=== PATIENT | male | born 1935 | race Caucasian/White ===

== ENCOUNTER 2018-06-01 10:00 | Inpatient (IN) | payer BC, OTHER ==
--- NOTE | 2018-06-01 10:19 | PDOC ---
Attending Attestation - Resident Resident Name: Bro Crane - HPI HPI: 06/01/18 12:31 Pt presents to the ED complaining of sudden onset of lightheadedness that occurred while sitting at a table. Symptoms improved spontaneously, but returned again when he tried to get up. Denies chest pain or shortness of breath. Now is symptom free. EMS reports HR of 200 that spontaneously resolved. 06/01/18 17:31 06/01/18 17:34 06/01/18 17:51 - Physicial Exam PE: 06/01/18 17:52 Agree with resident exam. PAtient is alert and oriented and in no acute distress. Lungs are clear. Heart: regular rate and rhythm without murmurs. Abdomen is soft non tender and non distended. - Medical Decision Making 06/01/18 17:55 Pt presents to the ED complaining of lightheadness that resolved spontaneously. Concern for arrythmia, less likely dehydration or electrolyte imbalance. Initial EKg shows sinus rhythm. Patient continued resting comfortably until approximately 20 minutes ago when he developed paroxysmal SVT with a HR of 170. Resolved after adenosine 6 mg. Will admit to medicine for continuous monitioring and possible EP study. 06/01/18 18:42
--- NOTE | 2018-06-01 10:55 | PDOC ---
History of Present Illness - General Chief Complaint: Lightheaded Stated Complaint: DIZZINESS Time Seen by Provider: 06/01/18 10:19 - History of Present Illness Initial Comments: 06/01/18 10:42 82 yo M with h/o HTN, HLD, CAD, stent placement x 3, CABG, who p/w lightheadedness. Patient reports eating at a restaurant prior to arrival, when experiencing sudden onset of lightheadedness at rest. States that he felt that his head felt "flushed," multiple times. Patient states that he stumbled standing up, but denies fall, head/neck/back trauma, or LOC. Denies h/o similar presentation. Patient in normal state of health prior to event. On AC. Patient denies STALEY, vision change, palpitations, cough, wheezing, leg pain/ swelling, N/V, F,C, CP, SOB, urinary complaints, abdominal pain, diarrhea, constipation, weakness, sensory changes. PMHx: as noted above ROS: as noted Allergies: Fluroquinolones PMD: Dr. Juan Padilla Past History - Past Medical History Allergies/Adverse Reactions: Allergies Allergy/AdvReac Type Severity Reaction Status Date / Time morphine Allergy Verified 06/01/18 10:20 Home Medications: Ambulatory Orders Amlodipine Besylate 10 mg PO DAILY 06/01/18 Aspirin 81 mg PO DAILY 06/01/18 Atorvastatin Ca [Lipitor] 20 mg PO HS 06/01/18 Clopidogrel Bisulfate [Plavix] 75 mg PO DAILY 06/01/18 Desmopressin Acetate [Ddavp -] 0.1 mg PO HS 06/01/18 Lisinopril [Prinivil -] 40 mg PO DAILY 06/01/18 Losartan/Hydrochlorothiazide [Losartan-Hctz 100-25 mg Tab] 1 each PO AM Metformin HCl [Glucophage] 1,000 mg PO BID 06/01/18 Metoprolol Succinate [Toprol Xl -] 50 mg PO BID 06/01/18 Tamsulosin HCl [Flomax] 0.4 mg PO BID 06/01/18 Zolpidem Tartrate [Ambien] 10 mg PO HS 06/01/18 Anemia: Yes Asthma: No Cancer: Yes (PROSTATE CA) Cardiac Disorders: (CAD,ANGINA,AORTIC STENOSIS) CVA: No COPD: No CHF: No Dementia: No Diabetes: Yes (NIDDM) GI Disorders: No Disorders: Yes (kidney stones) HTN: Yes Hypercholesterolemia: Yes Liver Disease: No Seizures: No Thyroid Disease: No - Surgical History Abdominal Surgery: Yes (RIGHT HERNIA REPAIR 2012) Appendectomy: Yes (195) Cardiac Surgery: Yes ([facility], cow valve replacement) Cholecystectomy: No Lung Surgery: No Neurologic Surgery: No Orthopedic Surgery: No - Suicide/Smoking/Psychosocial Hx Smoking Status: Yes Smoking History: Never smoked Years of Tobacco Use: 30 Have you smoked in the past 12 months: No Number of Cigarettes Smoked Daily: 0 If you are a former smoker, when did you quit?: 1960 Cigars Per Day: 5 Information on smoking cessation initiated: No 'Breaking Loose' booklet given: 09/03/11 Hx Alcohol Use: No Drug/Substance Use Hx: No Substance Use Type: Alcohol Hx Substance Use Treatment: No Review of Systems - Review of Systems Comments:: 06/01/18 10:56 GENERAL/CONSTITUTIONAL: No fever or chills. No weakness. HEAD, EYES, EARS, NOSE AND THROAT: No change in vision. No ear pain or discharge. No sore throat. CARDIOVASCULAR: No chest pain or shortness of breath RESPIRATORY: No cough, wheezing, or hemoptysis. GASTROINTESTINAL: No nausea, vomiting, diarrhea or constipation. GENITOURINARY: No dysuria, frequency, or change in urination. MUSCULOSKELETAL: No joint or muscle swelling or pain. No neck or back pain. SKIN: No rash NEUROLOGIC: No headache, vertigo, loss of consciousness, or change in strength/ sensation. ENDOCRINE: No increased thirst. No abnormal weight change HEMATOLOGIC/LYMPHATIC: No anemia, easy bleeding, or history of blood clots. ALLERGIC/IMMUNOLOGIC: No hives or skin allergy. *Physical Exam - Vital Signs Last Vital Signs Temp Pulse Resp BP Pulse Ox 98.4 F 80 16 120/55 L 100 06/01/18 10:00 06/01/18 10:00 06/01/18 10:00 06/01/18 10:00 06/01/18 10:00 - Physical Exam Comments: 06/01/18 10:57 GENERAL: Awake, alert, and fully oriented, in no acute distress HEAD: No signs of trauma, normocephalic, atraumatic EYES: PERRLA, EOMI, sclera anicteric, conjunctiva clear ENT: Auricles normal inspection, hearing grossly normal, nares patent, oropharynx clear without exudates. Moist mucosa NECK: Normal ROM, supple, no lymphadenopathy, JVD, or masses LUNGS: No distress, speaks full sentences, clear to auscultation bilaterally HEART: Regular rate and rhythm, normal S1 and S2, no murmurs, rubs or gallops, peripheral pulses normal and equal bilaterally. ABDOMEN: Soft, nontender, normoactive bowel sounds. No guarding, no rebound. No masses EXTREMITIES : Normal inspection, Normal range of motion, no edema. No clubbing or cyanosis. NEUROLOGICAL: Cranial nerves II through XII grossly intact. Normal speech, no focal sensorimotor deficits SKIN: Warm, Dry, normal turgor, no rashes or lesions noted Moderate Sedation - Procedure Monitoring Vital Signs: Procedure Monitoring Vital Signs Temperature 98.4 F 06/01/18 10:00 Pulse Rate 80 06/01/18 10:00 Respiratory Rate 16 06/01/18 10:00 Blood Pressure 120/55 L 06/01/18 10:00 O2 Sat by Pulse Oximetry (%) 100 06/01/18 10:00 Heart Score/ECG Review - History History: Slightly suspicious - Electrocardiogram EKG: Non specific repolarization disturbance - Age Age: >/= 65 - Risk Factors Risk Factors Heart Score: Yes Hx Hypercholesterolemia, Yes Hx Hypertension, Yes Positive family hx of cardiac disease Based on the list above the patient has:: >/=3 risk factors or Hx atherosclerotic disease - Troponin Troponin: </= normal limit - Score Heart Score - Total: 5 ED Treatment Course - LABORATORY CBC & Chemistry Diagram: 06/01/18 12:00 06/01/18 12:00 Medical Decision Making - Medical Decision Making 06/01/18 10:55 82 yo M with h/o HTN, HLD, CAD, stent placement x 3, CABG, who p/w lightheadedness. BP 120/5, vitals otherwise wnl, AF, A&Ox3. ACS/NM r/o. will assess for cardiac dysarrythmia, hypoglycemia, VBI/TIA, electrolyte abnml, metabolic and toxic derangements, acid-base disturbances, infection. Ed Course: 06/01/18 10:57 EKG: NSR with LAD. HR 82. Absent LAMAR. STD. Normal interval duration and axis. Neg Q waves. Poor R wave progression. incomplete RBBB. 06/01/18 12:29 WBC: 17.0 06/01/18 13:15 BUN/Cr: 42/1.4 trop: 0.04 06/01/18 13:16 Heart score 5 CXR: Unremarkable 06/01/18 13:[address] Villavicencio. Admit tele. UA pending NS 1/2 L 06/01/18 17:07 Patient with SVT vs. A-fib HR 172 EKG. Absent LAMAR, STD. Attempted vagal maneuver/valsalva, reverse trendelenberg, with no improvement Adenosine 6 administered Now NSR, new TWI lead V2 Encounter endorsed to Liberty Dimas *DC/Admit/Observation/Transfer Diagnosis at time of Disposition: Light-headed - Discharge Dispostion Condition at time of disposition: Stable Decision to Admit order: Yes - Referrals - Patient Instructions - Post Discharge Activity
[2018-06-01 12:11] LABS: BASO % 0.2 % (0-2.0); HEMATOCRIT 30.7 % (35.4-49); HEMOGLOBIN 10.4 GM/dL (11.7-16.9); LYMPH % 4.1 % (8-40); MCH 28.5 pg (25.7-33.7); MCHC 33.7 g/dl (32.0-35.9); MEAN CELL VOLUME 84.5 fl (80-96); MEAN PLT VOLUME 7.5 fl (7.5-11.1); MONO % 9.1 % (3.8-10.2); NEUT % 86.6 % (42.8-82.8); PLATELET COUNT 329 K/MM3 (134-434); RBC 3.64 M/mm3 (4.00-5.60); RDW 14.1 % (11.9-15.9); WHITE BLOOD COUNT 17.1 K/mm3 (4.0-10.0)
[2018-06-01 12:24] LABS: INR 1.14 (0.83-1.09); PROTHROMBIN TIME (PATIENT) 13.5 SEC (9.7-13.0)
[2018-06-01 12:41] LABS: ALBUMIN 3.1 g/dl (3.4-5.0); ALK PHOS 62 U/L (45-117); ANION GAP 11 MMOL/L (8-16); BILIRUBIN,TOTAL 1.1 mg/dL (0.2-1); BLOOD UREA NITROGEN 42 mg/dL (7-18); CALCIUM 8.3 mg/dL (8.5-10.1); CHLORIDE 96 mmol/L (98-107); CO2 28 mmol/L (21-32); CREATININE 1.4 mg/dL (0.55-1.3); POTASSIUM 3.5 mmol/L (3.5-5.1); SGOT/AST 27 U/L (15-37); SGPT/ALT 34 U/L (13-61); SODIUM 135 mmol/L (136-145); TOT PROT 6.7 g/dl (6.4-8.2)
[2018-06-01 12:50] LABS: GLUCOSE,RANDOM 301 mg/dL (74-106)
[2018-06-01] MEDS ORDERED: SODIUM CHLORIDE 500 ML IV STA (13:30)
--- NOTE | 2018-06-01 14:48 | HP ---
CHIEF COMPLAINT: lightheadedness PCP: Dr. Padilla [employer] Warfare Technical: Dr. Odell Urologist: Dr. Gonzalez HISTORY OF PRESENT ILLNESS: Patient is an 82 year old male with a PMHx of CAD s/p CABG 2005, PCI, Aortic Stenosis s/p TAVR 11/2017, HTN, HLD, NIDDMII, Prostate cancer s/p seeding, carotid stenosis, bladder stones s/p lithotripsy who was BIBEMS after an episode of lightheadedness. According to patient, he was with his friends at a coffee shop this afternoon and all of a sudden he felt whoozy and dizzy, he then stood up and almost "passed out" but was caught by his friends. Patient denies any chest pain, palpitations, shortness of breath before, during, or after this episode. Patient denies having any loss of consciousness. After the episode, patient did not want to go home in this condition and therefore called 911. Patient denies ever having similar episodes in the past. Reports he did eat half an egg and cheese sandwich prior to this episode. According to patient, he's had constipation for the last three months requiring him to strain when moving his bowels. Reports his last bowel movement was 4-5 days ago, despite laxative use. Patient also reports having a recent UTI for which he was treated with Ceftin and completed and his Flomax increased to BID. Patient also admits to not monitoring his glucose levels for the last few months but complains of worsening, urinary frequency and increased thirst. Patient's last colonoscopy was 2007 with no malignancies Patient's last ECHO 12/2017 Patient otherwise denies any fever, chills, nausea, vomiting, chest pain, palpitations, shortness of breath, headaches, diarrhea, loss of consciousness, acute vision changes. ER course was notable for: Patient initial EKG was nsr with no khushboo, std or t wave inversions. Then had one episode of SVT in the 170's with Adenosine 6mg given with resolution of SVT. Repeat EKG done which revealed t wave inversion in v2. Recent Travel: Denies PAST MEDICAL HISTORY: CAD s/p CABG 2005, PCI, Aortic Stenosis s/p TAVR 11/2017, HTN, HLD, NIDDMII, Prostate cancer s/p seeding, carotid stenosis, bladder stones s/p lithotripsy PAST SURGICAL HISTORY: Appendectomy, CABG/PCI, TAVR, Cataracts, prostate seeding , lithotripsy Social History: Smoking: Former 1 PPD. Quit at the age of 32 Alcohol: Denies Drugs: Denies Family History: Father- colon cancer Allergies: morphine Allergy (Verified 06/01/18 10:20) HOME MEDICATIONS: Home Medications Medication Instructions Recorded Amlodipine Besylate [Norvasc -] 10 mg PO DAILY 03/06/12 Atenolol [Tenormin -] 50 mg PO HS 03/06/12 Simvastatin [Zocor -] 20 mg PO HS 03/06/12 Zolpidem Tartrate [Ambien] 5 mg PO HS 03/06/12 metFORMIN HCL [Glucophage] 1,000 mg PO BID 03/06/12 Lisinopril [Prinivil -] 40 mg PO DAILY #0 tablet 03/13/12 Losartan/Hydrochlorothiazide 1 each PO DAILY #0 tablet 03/13/12 [Losartan-Hctz 100-25 mg Tablet] Multivitamin [Multivitamins] 1 each PO DAILY #0 capsule 03/13/12 Aspirin Coated [Ecotrin -] 81 mg PO DAILY #0 03/03/14 Clopidogrel Bisulfate [Plavix -] 75 mg PO DAILY #0 03/03/14 REVIEW OF SYSTEMS CONSTITUTIONAL: Absent: fever, chills, diaphoresis, generalized weakness, malaise, loss of appetite, weight change HEENT: Absent: rhinorrhea, nasal congestion, throat pain, throat swelling, difficulty swallowing, mouth swelling, ear pain, eye pain, visual changes CARDIOVASCULAR: lightheadedness Absent: chest pain, syncope, palpitations, irregular heart rate, peripheral edema RESPIRATORY: Absent: cough, shortness of breath, dyspnea with exertion, orthopnea, wheezing, stridor, hemoptysis GASTROINTESTINAL: constipation Absent: abdominal pain, abdominal distension, nausea, vomiting, diarrhea, melena , hematochezia GENITOURINARY: Absent: dysuria, frequency, urgency, hesitancy, hematuria, flank pain, genital pain MUSCULOSKELETAL: Absent: myalgia, arthralgia, joint swelling, back pain, neck pain SKIN: Absent: rash, itching, pallor HEMATOLOGIC/IMMUNOLOGIC: Absent: easy bleeding, easy bruising, lymphadenopathy, frequent infections ENDOCRINE: Absent: unexplained weight gain, unexplained weight loss, heat intolerance, cold intolerance NEUROLOGIC: Absent: headache, focal weakness or paresthesias, dizziness, unsteady gait, seizure, mental status changes, bladder or bowel incontinence PSYCHIATRIC: Absent: anxiety, depression, suicidal or homicidal ideation, hallucinations. PHYSICAL EXAMINATION Vital Signs - 24 hr 06/01/18 10:00 Temperature 98.4 F Pulse Rate 80 Respiratory 16 Rate Blood Pressure 120/55 L O2 Sat by Pulse 100 Oximetry (%) GENERAL: Awake, alert, and fully oriented, in no acute distress. HEAD: Normal with no signs of trauma. EYES: Pupils equal, round and reactive to light, extraocular movements intact, sclera anicteric, conjunctiva clear. EARS, NOSE, THROAT: Oropharynx clear without exudates. Moist mucous membranes. NECK: Normal range of motion, supple without lymphadenopathy, JVD, or masses. LUNGS: Breath sounds equal, clear to auscultation bilaterally. No wheezes, and no crackles. No accessory muscle use. HEART: Regular rate and rhythm, normal S1 and S2 with diastolic murmur. ABDOMEN: Soft, nontender, mild distention, normoactive bowel sounds, no guarding , no rebound, no masses. No hepatomegaly or splenomegaly. MUSCULOSKELETAL: Normal range of motion at all joints. No bony deformities or tenderness. No CVA tenderness. UPPER EXTREMITIES: No peripheral edema. LOWER EXTREMITIES: No peripheral edema. NEUROLOGICAL: Cranial nerves II-XII intact. Normal speech. PSYCHIATRIC: Cooperative. Good eye contact. Appropriate mood and affect. SKIN: Warm, dry, normal turgor, no rashes or lesions noted, normal capillary refill. Laboratory Results 06/01/18 12:00 06/01/18 12:00 06/01/18 06/01/18 06/01/18 12:00 12:00 18:00 PT with INR 13.50 H INR 1.14 H Troponin I 0.04 0.04 Active Medications Generic Name Dose Route Start Last Admin Trade Name Freq PRN Reason Stop Dose Admin Amlodipine Besylate 10 mg 06/01/18 15:15 06/01/18 17:22 Norvasc - PO Not Given DAILY [facility] Aspirin 81 mg 06/02/18 10:00 Asa - PO DAILY [facility] Atorvastatin Calcium 20 mg 06/01/18 22:00 Lipitor - PO HS [facility] Clopidogrel Bisulfate 75 mg 06/02/18 10:00 Plavix - PO DAILY [facility] Docusate Sodium 100 mg 06/01/18 16:05 Colace - PO BID PRN CONSTIPATION Heparin Sodium (Porcine) 5,000 unit 06/01/18 22:00 Heparin - SQ TID [facility]E Sodium Chloride 1,000 mls @ 50 mls/hr 06/01/18 15:30 06/01/18 16:55 Normal Saline - IV 06/02/18 15:23 50 mls/hr ASDIR VALENTE Administration Insulin Aspart 1 vial 06/01/18 16:30 06/01/18 16:50 Novolog Vial Sliding Scale - SQ 10 units ACHS [facility]ENTE Administration Protocol Metoprolol Succinate 50 mg 06/01/18 22:00 Toprol Xl - PO BID [facility] Polyethylene Glycol 17 gm 06/01/18 16:15 Miralax (For Daily Use) - PO DAILY [facility] Senna 1 tab 06/01/18 22:00 Senna - PO BID [facility] Zolpidem Tartrate 5 mg 06/01/18 22:00 Ambien - PO HS PRN INSOMNIA ASSESSMENT/PLAN: Patient is an 82 year old male who presented for lightheadedness and near syncopal episode. Patient admitted to telemetry for further monitoring and management. Near Syncopal Episode -Rule out infectious vs. cardiac etiology -Patient found to be hyperglycemic with hypovolemia on labs -Will need to rule out Arrhythmias -Recent increase in Flomax -U/A pending -Patient had one episode of SVT but case discussed with [facility] portal consultant and suspect patient had episode of near syncope due to possible arrhythmia. -Cardiac monitoring -Continue to trend toponins -Carotid doppler pending -ECHO pending ANTHONY -Likely secondary from hypovolemia due to diuretic use and increase flomax dosage -Given 500c bolus of NS. Will place on standing IV NS @50mls/hr -Hold CAROLINE/ARB/HCTZ -Renally dose medications -Continue to monitor BMP Leukocytosis -Likely UTI -U/A and culture pending -Continue to monitor CBC Constipation -Aggressive bowel management with Miralax, Colace and Senna -Abdominal X-Ray pending -Will need outpatient colonoscopy. Last one 2007 with no malignancies CAD s/p CABG/PCI -Continue ASA -Continue Plavix -Repeat A1C -Repeat ECHO Recent UTI -Completed Ceftin 500mg BID -U/A and Urine culture pending NIDDMII -Currently Hyperglycemic. Admits to not monitoring his glucose levels -ISS -BGM -Repeat A1C. Last A1C 7.0% (03/2019) Prostate Cancer -s/p seeding and laser treatment -Recently had Flomax increased to BID but will resume for only 0.4mg once daily HTN -Continue Metoprolol 50mg BID -Continue Amlodipine 10mg daily -Hold CAROLINE/ARB/HCTZ due to ANTHONY -Continue to monitor BP HLD -Continue Lipitor 20 HS Severe Aortic Stenosis -S/P TAVR -ECHO pending F/E/N -IV NS @50mld/hr -Electrolytes wnl -Diabetic/Sodium controlled diet Prophylaxis -Heparin 5000 units sq tid for DVT -No GI required Disposition -Full code -Awaiting cardiology input Puja Kennedy [id number] Visit type - Emergency Visit Emergency Visit: Yes ED Registration Date: 06/01/18 Care time: The patient presented to the Emergency Department on the above date and was hospitalized for further evaluation of their emergent condition. - New Patient This patient is new to me today: Yes Date on this admission: 06/01/18 - Critical Care Critical Care patient: No
[2018-06-01] MEDS ORDERED: amLODIPine BESYLATE 10 MG TABLET (FP) PO SCH (15:15)
[2018-06-01] MEDS ORDERED: SODIUM CHLORIDE 1,000 ML IV SCH ×2 (15:30→22:46)
[2018-06-01] MEDS ORDERED: DOCUSATE SODIUM 100 MG CAPSULE (FP) PO PRN ×2 (16:05→22:46)
[2018-06-01] MEDS ORDERED: POLYETHYLENE GLYCOL 3350 119 GM BTL PO SCH (16:15)
--- NOTE | 2018-06-01 16:16 | PN ---
Teaching Attending Note Name of Resident: Puja Kennedy ATTENDING PHYSICIAN STATEMENT I saw and evaluated the patient. I reviewed the resident's note and discussed the case with the resident. I agree with the resident's findings and plan as documented with exceptions below. 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 Never passed out. Denies any vision changes, chest pain, palpitations, LOC, head trauma, urinary or bowel incontinence around the episode. patient reports his flomax was increased esteban 0.4 mg twice daily last week. He was also placed on 5 days of ceftin for UTI this week. He reports he was placed on desmopressin by his urologist but d/linda recently due to constipation. Has been stating ongoing constipation for last few months, has to strain to move his bowels. Last BM was 4-5 days ago, has tried OTC laxatives with not much results. Last colonoscopy was in 2007. Patient reports not checking his blood sugars recently, has been having polyuria , polydypsia and polyphagia. 12 point ROS done, neg except above. OBJECTIVE: Vital Signs Period Temp Pulse Resp BP Sys/Ocasio Pulse Ox Last 24 Hr 98.4 F 80 16 120/55 100 Intake & Output 05/29/18 05/30/18 05/31/18 06/01/18 23:59 23:59 23:59 23:59 Intake Total 1000 Balance 1000 Weight 145 lb GENERAL: Awake, alert, and fully oriented, in no acute distress. HEAD: Normal with no signs of trauma. EYES: Pupils equal, round and reactive to light, extraocular movements intact, sclera anicteric, conjunctiva clear. No lid lag. EARS, NOSE, THROAT: Ears normal, nares patent, oropharynx clear without exudates. Moist mucous membranes. NECK: Normal range of motion, soft, supple, no JVD, unable to appreciate carotid bruit LUNGS: Breath sounds equal, clear to auscultation bilaterally. No wheezes, and no crackles. No accessory muscle use. HEART: Regular rate and rhythm, normal S1 and S2, systolic murmur in aortic region, diastolic murmur left parasternal/precordium ABDOMEN: Soft, nontender, mild distension, normoactive bowel sounds, no guarding , no rebound, no masses. No hepatomegaly or splenomegaly appreciated. MUSCULOSKELETAL: Normal range of motion at all joints. No bony deformities or tenderness. No CVA tenderness. UPPER EXTREMITIES: 2+ pulses, warm, well-perfused. No cyanosis. No clubbing. No peripheral edema. LOWER EXTREMITIES: 2+ pulses, warm, well-perfused. No calf tenderness. No peripheral edema. NEUROLOGICAL: AAOx3, power 5/5, sensation intact to light touch, facial symmetry , tongue midline, EOMI, cranial nerves II-XII grossly intact, toes down going, gait not observed PSYCHIATRIC: Cooperative. Good eye contact. Appropriate mood and affect. SKIN: Warm, dry, normal turgor, no rashes or lesions noted, normal capillary refill. Home Medications Medication Instructions Recorded Amlodipine Besylate 10 mg PO DAILY 06/01/18 Aspirin 81 mg PO DAILY 06/01/18 Atorvastatin Ca [Lipitor] 20 mg PO HS 06/01/18 Clopidogrel Bisulfate [Plavix] 75 mg PO DAILY 06/01/18 Desmopressin Acetate [Ddavp -] 0.1 mg PO HS 06/01/18 Lisinopril [Prinivil -] 40 mg PO DAILY 06/01/18 Losartan/Hydrochlorothiazide 1 each PO AM 06/01/18 [Losartan-Hctz 100-25 mg Tab] Metformin HCl [Glucophage] 1,000 mg PO BID 06/01/18 Metoprolol Succinate [Toprol Xl -] 50 mg PO BID 06/01/18 Tamsulosin HCl [Flomax] 0.4 mg PO BID 06/01/18 Zolpidem Tartrate [Ambien] 10 mg PO HS 06/01/18 Active Medications Amlodipine Besylate (Norvasc -) 10 mg PO DAILY [facility] Aspirin (Asa -) 81 mg PO DAILY [facility] Atorvastatin Calcium (Lipitor -) 20 mg PO HS [facility] Clopidogrel Bisulfate (Plavix -) 75 mg PO DAILY [facility] Docusate Sodium (Colace -) 100 mg PO BID PRN PRN Reason: CONSTIPATION Heparin Sodium (Porcine) (Heparin -) 5,000 unit SQ TID [facility] Sodium Chloride (Normal Saline -) 1,000 mls @ 50 mls/hr IV ASDIR [facility] Stop: 06/02/18 15:23 Insulin Aspart (Novolog Vial Sliding Scale -) 1 vial SQ ACHS [facility]; Protocol Metoprolol Succinate (Toprol Xl -) 50 mg PO BID [facility] Polyethylene Glycol (Miralax (For Daily Use) -) 17 gm PO DAILY [facility] Senna (Senna -) 1 tab PO BID [facility] Zolpidem Tartrate (Ambien -) 5 mg PO HS PRN PRN Reason: INSOMNIA Laboratory Results - last 24 hr 06/01/18 06/01/18 06/01/18 12:00 12:00 12:00 WBC 17.1 H RBC 3.64 L Hgb 10.4 L Hct 30.7 L MCV 84.5 MCH 28.5 MCHC 33.7 RDW 14.1 Plt Count 329 D MPV 7.5 Absolute Neuts (auto) 14.8 H Neutrophils % 86.6 H Lymphocytes % 4.1 L D Monocytes % 9.1 Eosinophils % 0.0 D Basophils % 0.2 Nucleated RBC % 0 PT with INR INR Sodium 135 L Potassium 3.5 Chloride 96 L Carbon Dioxide 28 Anion Gap 11 BUN 42 H Creatinine 1.4 H Creat Clearance w eGFR 48.76 Random Glucose 301 H* Calcium 8.3 L Total Bilirubin 1.1 H AST 27 ALT 34 Alkaline Phosphatase 62 Creatine Kinase 104 Troponin I 0.04 Total Protein 6.7 Albumin 3.1 L 06/01/18 12:00 WBC RBC Hgb Hct MCV MCH MCHC RDW Plt Count MPV Absolute Neuts (auto) Neutrophils % Lymphocytes % Monocytes % Eosinophils % Basophils % Nucleated RBC % PT with INR 13.50 H INR 1.14 H Sodium Potassium Chloride Carbon Dioxide Anion Gap BUN Creatinine Creat Clearance w eGFR Random Glucose Calcium Total Bilirubin AST ALT Alkaline Phosphatase Creatine Kinase Troponin I Total Protein Albumin EKG NSR, no acute ST-T changes CXR - no acute process ASSESSMENT AND PLAN: 82 yom with PMhx of CAD s/p CABG 2005, PCI (DESEAN to LCx 08/20), 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 -ANTHONY, suspect from hypovolumia and continuation of CAROLINE/ARB/HCTZ -leucocytosis, r/o UTI -Constipation -CAD s/p CABG/PCI -Recent UTI, h/o bladder stone s/p cystoscopy/ureteroscopy/lithotrispy 01/2018 -Prostate cancer -Severe s/p TAVR -NIDDM, last A1c in 03/2018 7 -Hyperglycemia, ?From UTI/infectious process -h/o prostate cancer Plan: Patient reports flomax recently increased to BID and taken off desmopressin by urology. Will continue flomax at daily dosing hs. Confirm with urologist Dr. Gonzalez about recent med changes/w/u Check urinalysis, treat accordingly. Gentle IVF with monitoring of volume status. Check A1c, ISS 2Decho/carotid duplex. Cardiology input. Will need holter outpatient if no clear etiology identified. Aggressive bowel regimen. Advised patient, will need outpatient colonoscopy given recent change in bowels. Hold ARB/ACEi/HCTZ. Continue ASA/plavix/metoprolol/statin/amlodipine as tolerated. DVTPPX heparin Dispo pending clinical improvement. Admit to inpatient telemetry. Plan discussed with patient in detail, all questions answered. total admit time 65 min.
--- NOTE | 2018-06-01 16:24 | EKG ---
Test Reason : Blood Pressure : / mmHG Vent. Rate : 082 BPM Atrial Rate : 082 BPM P-R Int : 148 ms QRS Dur : 104 ms QT Int : 382 ms P-R-T Axes : 035 -32 023 degrees QTc Int : 446 ms NORMAL SINUS RHYTHM LEFT AXIS DEVIATION INCOMPLETE RBBB ABNORMAL ECG Confirmed by MD JUANIS, GARY ([id number]) on 06/01/2018 4:24:33 PM Referred By: Confirmed By:GARY OLIVAREZ MD
[2018-06-01] MEDS ORDERED: INSULIN SLIDING SCALE (NOVOLOG) 1 VIAL SQ SCH (16:30)
[2018-06-01] MEDS ORDERED: amLODIPine BESYLATE 5 MG TABLET (FP) ONE (16:40)
[2018-06-01] MEDS ORDERED: INSULIN (NOVOLOG) ASPART 100 UNITS/ML 10ML VIAL ONE (16:42)
[2018-06-01] MEDS ORDERED: ADENOSINE 6 MG/2 ML VIAL IVPUSH ONE ×3 (16:57→20:12)
[2018-06-01 17:08] LABS: URINE APPEARANCE TURBID; URINE BILIRUBIN NEGATIVE (<2.0 mg/dL); URINE COLOR YELLOW; URINE GLUCOSE (UA) 3+ (NEGATIVE); URINE KETONE NEGATIVE (NEGATIVE); URINE LEUK ESTERASE 2+ (NEGATIVE); URINE NITRITE POSITIVE (NEGATIVE); URINE PROTEIN 2+ (NEGATIVE); URINE UROBILINOGEN NEGATIVE mg/dL (0.2-1.0)
--- NOTE | 2018-06-01 17:37 | ECHO ---
Name: SPENSER RAJAN Exam:Adult Echocardiogram Study Date: 06/01/2018 03:40 PM Age: 82 yrs Height: 67 in Weight: 145 lb BSA: 1.8 m2 MMode/2D Measurements & Calculations IVSd: 0.79 cm Ao root diam: 2.4 cm LVIDd: 4.6 cm LA dimension: 4.0 cm LVIDs: 3.2 cm LVPWd: 0.71 cm EDV(Teich): 96.2 ml LVOT diam: 2.0 cm ESV(Teich): 41.6 ml LAV (MOD-bp): 61.0 ml Doppler Measurements & Calculations MV E max mateusz: 80.9 cm/sec Ao V2 max: 192.2 cm/sec MV A max mateusz: 58.7 cm/sec Ao max P.8 mmHg MV E/A: 1.4 Ao V2 mean: 125.6 cm/sec MV dec time: 0.18 sec Ao mean P.3 mmHg Ao V2 VTI: 34.0 cm ESTELLA(I,D): 1.8 cm2 ESTELLA(V,D): 1.5 cm2 LV V1 max P.4 mmHg MR max mateusz: 517.5 cm/sec LV V1 mean P.8 mmHg MR max P.6 mmHg LV V1 max: 92.5 cm/sec LV V1 mean: 62.2 cm/sec LV V1 VTI: 18.8 cm SV(LVOT): 59.7 ml TR max mateusz: 242.0 cm/sec TR max P.5 mmHg PI end-d mateusz: 99.9 cm/sec Med Peak E' Mateusz: 7.6 cm/sec Med E/e': 10.7 Lat Peak E' Mateusz: 8.4 cm/sec Lat E/e': 9.6 Left Ventricle The left ventricular size, thickness and function are normal. Ejection Fraction = 65. Right Ventricle The right ventricle is normal in size and function. Atria The left atrium is mildly dilated. Right atrial size is normal. Mitral Valve There is mild mitral annular calcification. There is mild to moderate mitral regurgitation. Tricuspid Valve The tricuspid valve is normal. There is mild tricuspid regurgitation. Aortic Valve There is a bioprosthetic aortic valve. Aortic mean pressure gradient= 7.3. Aortic max pressure gradie nt= 14.8. Pulmonic Valve The prosthetic pulmonic valve is not well visualized. Great Vessels The aortic root is normal size. Normal aortic arch, descending and ascending aorta. Pericardium/Pleura There is no pericardial effusion. Interpretation Summary The left ventricular size, thickness and function are normal Ejection Fraction = 65. The right ventricle is normal in size and function. The left atrium is mildly dilated. Right atrial size is normal. There is mild mitral annular calcification. There is mild to moderate mitral regurgitation. The tricuspid valve is normal. There is mild tricuspid regurgitation. There is a bioprosthetic aortic valve. Aortic mean pressure gradient= 7.3 Aortic max pressure gradient= 14.8 The prosthetic pulmonic valve is not well visualized. The aortic root is normal size. Normal aortic arch, descending and ascending aorta There is no pericardial effusion. Cortes Mcclure 06/01/2018 05:37 PM
[2018-06-01] MEDS ORDERED: ADENOSINE 6 MG/2 ML VIAL IVPUSH PRN ×2 (20:11→22:46)
[2018-06-01] MEDS ORDERED: SODIUM CHLORIDE 1,000 ML IV STA ×2 (20:53→22:46)
[2018-06-01] MEDS ORDERED: METOPROLOL TARTRATE 5 MG/5 ML VIAL IVPUSH ONE ×2 (21:13→22:46)
[2018-06-01 21:20] LABS: EPI CELLS RARE /HPF (FEW); URINE BACTERIA MODERATE /hpf (NONE SEEN); URINE MUCUS RARE
[2018-06-01] MEDS ORDERED: LACTATED RINGERS SOLUTION 1,000 ML/1,000 ML INFUS.BAG IV ONE ×2 (21:31→22:46)
[2018-06-01] MEDS ORDERED: METOPROLOL TARTRATE 5 MG/5 ML VIAL ONE (21:34)
[2018-06-01] MEDS ORDERED: DILTIAZEM INJECTION 125 MG in SODIUM CHLORIDE 100 ML IVPB SCH ×2 (22:00→22:46)
[2018-06-01] MEDS ORDERED: SENNOSIDES 8.6MG TABLET (FP) PO SCH (22:00)
[2018-06-01] MEDS ORDERED: HEPARIN NA (PORCINE) 5,000 UNITS/ML 1ML VIAL SQ SCH (22:00)
[2018-06-01] MEDS ORDERED: ZOLPIDEM TARTRATE 5 MG TABLET PO PRN (22:00)
[2018-06-01] MEDS ORDERED: ATORVASTATIN CA 20 MG TABLET (FP) PO SCH (22:00)
--- NOTE | 2018-06-02 00:24 | RAPID ---
Physical Examination Vital Signs: Vital Signs Temperature 98.4 F 06/01/18 10:00 Pulse Rate 120 H 06/01/18 23:23 Respiratory Rate 18 06/01/18 20:44 Blood Pressure 137/57 L 06/01/18 23:23 O2 Sat by Pulse Oximetry (%) 100 06/01/18 20:44 Labs: CBC, BMP 06/01/18 12:00 06/01/18 12:00 Rapid Response - Rapid Response Assessment: rapid response was called at 9;30- patient was in and out of SVT with max HR being 202 patient was asymptomatic at the time vitals upon arrival: BP 124/75 HR 180 RR 12 PE ge: NAD heart: tachycardic; s1 s2 lungs CTA B/L; no rales, rhonchi or wheezing given adenosine X24mg given lopressor 75 patient was in paroxysmal SVT call placed to dr. fields who suggested placing patient on cardizem drip
[2018-06-02] MEDS: ZOLPIDEM TARTRATE 5 MG TABLET PO PRN ×2 (00:41→23:36)
[2018-06-02] MEDS ORDERED: ADENOSINE 6 MG/2 ML VIAL IVPUSH ONE ×6 (01:00→04:50)
[2018-06-02] MEDS ORDERED: METOPROLOL TARTRATE 5 MG/5 ML VIAL IVPUSH ONE (01:00)
[2018-06-02] MEDS: HEPARIN NA (PORCINE) 5,000 UNITS/ML 1ML VIAL SQ SCH ×3 (06:04→21:48)
[2018-06-02 06:45] LABS: BASO % 0.2 % (0-2.0); EOS % 0.2 % (0-4.5); HEMATOCRIT 27.7 % (35.4-49); HEMOGLOBIN 9.4 GM/dL (11.7-16.9); LYMPH % 7.2 % (8-40); MCH 28.8 pg (25.7-33.7); MEAN CELL VOLUME 84.7 fl (80-96); MEAN PLT VOLUME 7.9 fl (7.5-11.1); MONO % 9.3 % (3.8-10.2); NEUT % 83.1 % (42.8-82.8); PLATELET COUNT 304 K/MM3 (134-434); RBC 3.27 M/mm3 (4.00-5.60); RDW 14.3 % (11.9-15.9); WHITE BLOOD COUNT 16.5 K/mm3 (4.0-10.0)
[2018-06-02 06:55] LABS: INR 1.18 (0.83-1.09); PROTHROMBIN TIME (PATIENT) 13.9 SEC (9.7-13.0)
[2018-06-02] MEDS: INSULIN SLIDING SCALE (NOVOLOG) 1 VIAL SQ SCH ×4 (07:27→21:54)
[2018-06-02 07:36] LABS: ALBUMIN 2.7 g/dl (3.4-5.0); ALK PHOS 53 U/L (45-117); ANION GAP 11 MMOL/L (8-16); BILIRUBIN,TOTAL 0.9 mg/dL (0.2-1); BLOOD UREA NITROGEN 45 mg/dL (7-18); CALCIUM 7.6 mg/dL (8.5-10.1); CHLORIDE 103 mmol/L (98-107); CO2 25 mmol/L (21-32); CREATININE 1.3 mg/dL (0.55-1.3); GLUCOSE,RANDOM 143 mg/dL (74-106); MAGNESIUM 1.9 mg/dL (1.8-2.4); PHOSPHOROUS 4.2 mg/dL (2.5-4.9); POTASSIUM 3.3 mmol/L (3.5-5.1); SGOT/AST 22 U/L (15-37); SGPT/ALT 29 U/L (13-61); SODIUM 139 mmol/L (136-145); TOT PROT 5.9 g/dl (6.4-8.2)
[2018-06-02] MEDS ORDERED: POLYETHYLENE GLYCOL 3350 119 GM BTL PO SCH (10:00)
[2018-06-02] MEDS ORDERED: ASPIRIN 81 MG CHEWABLE TABLETS PO SCH (10:00)
[2018-06-02] MEDS ORDERED: CLOPIDOGREL BISULFATE 75 MG TABLET (FP) PO SCH (10:00)
[2018-06-02] MEDS ORDERED: amLODIPine BESYLATE 10 MG TABLET (FP) PO SCH (10:00)
[2018-06-02] MEDS: CLOPIDOGREL BISULFATE 75 MG TABLET (FP) PO SCH (10:34)
[2018-06-02] MEDS: SENNOSIDES 8.6MG TABLET (FP) PO SCH ×2 (10:34→21:49)
[2018-06-02] MEDS: ASPIRIN 81 MG CHEWABLE TABLETS PO SCH (10:34)
--- NOTE | 2018-06-02 11:33 | PN ---
Physical Exam: SUBJECTIVE: Patient seen and examined by me at bedside. Patient continued to have SVT yesterday with several rounds of Adenosine and no response. Patient was then placed on Cardizem drip, as per [employer] with no further episodes. Patient offers no complaints except for some abdominal pain. Still complaints of constipation with no bowel movements Otherwise, patient denies fever, chills, nausea, vomiting, chest pain, shortness of breath, dizziness, loss of consciousness. OBJECTIVE: Vital Signs Period Temp Pulse Resp BP Sys/Ocasio Pulse Ox Last 24 Hr 97.6 F-98.0 F 64-210 13-20 92-150/40-95 95-100 GENERAL: Awake, alert, and fully oriented, in no acute distress. EYES: Pupils equal, round and reactive to light, extraocular movements intact, sclera anicteric, conjunctiva clear. ENT: Oropharynx clear without exudates. Moist mucous membranes. LUNGS: Breath sounds equal, clear to auscultation bilaterally. No wheezes, and no crackles. No accessory muscle use. HEART: Regular rate and rhythm, normal S1 and S2 with diastolic murmur. ABDOMEN: Soft, nontender, mild distention, normoactive bowel sounds, no guarding , no rebound, no masses. LOWER EXTREMITIES: No peripheral edema. NEUROLOGICAL: Cranial nerves II-XII intact. Normal speech. Laboratory Results 06/02/18 05:30 06/02/18 05:30 06/02/18 06/02/18 05:30 05:30 PT with INR 13.90 H INR 1.18 H Phosphorus 4.2 Magnesium 1.9 Total Bilirubin 0.9 AST 22 ALT 29 Alkaline Phosphatase 53 Active Medications Generic Name Dose Route Start Last Admin Trade Name Freq PRN Reason Stop Dose Admin Adenosine 6 mg 06/01/18 22:46 Adenocard - IVPUSH PRN PRN svt Amlodipine Besylate 10 mg 06/02/18 10:00 06/02/18 10:34 Norvasc - PO 10 mg DAILY [facility] Administration Aspirin 81 mg 06/02/18 10:00 06/02/18 10:34 Asa - PO 81 mg DAILY [facility] Administration Atorvastatin Calcium 20 mg 06/02/18 22:00 Lipitor - PO HS [facility] Clopidogrel Bisulfate 75 mg 06/02/18 10:00 06/02/18 10:34 Plavix - PO 75 mg DAILY [facility] Administration Docusate Sodium 100 mg 06/01/18 22:46 Colace - PO Q12H PRN CONSTIPATION Heparin Sodium (Porcine) 5,000 unit 06/02/18 06:00 06/02/18 06:04 Heparin - SQ 5,000 unit TID [facility] Administration Diltiazem HCl 125 mg/ Sodium 125 mls @ 5 mls/hr 06/01/18 22:46 06/01/18 23:06 Chloride IVPB 5 mg/hr TITR [facility] 5 mls/hr Administration Protocol 5 MG/HR Sodium Chloride 1,000 mls @ 50 mls/hr 06/01/18 22:46 06/01/18 22:50 Normal Saline - IV 06/02/18 15:23 50 mls/hr ASDIR [facility] Administration Insulin Aspart 1 vial 06/02/18 07:00 06/02/18 07:27 Novolog Vial Sliding Scale - SQ 2 unit ACHS [facility] Administration Protocol Metoprolol Succinate 50 mg 06/02/18 10:00 06/02/18 10:35 Toprol Xl - PO 50 mg BID [facility] Administration Polyethylene Glycol 17 gm 06/02/18 10:00 06/02/18 10:34 Miralax (For Daily Use) - PO 17 grams DAILY [facility] Administration Senna 1 tab 06/02/18 10:00 06/02/18 10:34 Senna - PO 1 tab BID [facility] Administration Zolpidem Tartrate 5 mg 06/01/18 22:46 06/02/18 00:41 Ambien - PO 5 mg HS PRN Administration INSOMNIA ASSESSMENT/PLAN: Patient is an 82 year old male who presented for lightheadedness and near syncopal episode. Patient admitted to telemetry for further monitoring and management. Near Syncopal Episode -Likely arhythmia related. Patient had SVT's with several rounds Adenosine. Patient now on Cardizem drip with no further episodes. -U/A revealed UTi. Will need cultures before starting Abx -Carotid doppler pending SVT -Patient with several episodes of SVT overnight. -Started with Carizem drip and now on 5. Will titrate down and transition to PO -Continue to monitor ANTHONY- Improving -Likely secondary from hypovolemia due to diuretic use and increase flomax dosage -Contnue IV NS @50mls/hr -Hold CAROLINE/ARB/HCTZ -Renally dose medications -Continue to monitor BMP Leukocytosis -Likely UTI -Culture pending -Continue to monitor CBC Constipation -Aggressive bowel management with Miralax, Colace and Senna -Abdominal X-Ray pending -Will need outpatient colonoscopy. Last one 2007 with no malignancies CAD s/p CABG/PCI -Continue ASA -Continue Plavix -Lipid panel ordered Recent UTI -Completed Ceftin 500mg BID -Urine culture pending and will start Ceftriaxone NIDDMII -Currently Hyperglycemic. Admits to not monitoring his glucose levels -ISS -BGM -Last A1C 7.0% (03/2019) now 9.1% -Will need Jardiance as outpatient and possible long acting insulin -Will begin Levemir 10 units HS Prostate Cancer -s/p seeding and laser treatment -Recently had Flomax increased to BID but will resume for only 0.4mg once daily HTN -Continue Metoprolol 50mg BID -Will need to dc Amlodipine 10mg daily and transition to PO Cardizem -Hold CAROLINE/ARB/HCTZ due to ANTHONY -Continue to monitor BP HLD -Continue Lipitor 20 HS Severe Aortic Stenosis -S/P TAVR -ECHO showed EF 65% F/E/N -IV NS @50mld/hr -Hypokalemia. replete and repeat -Diabetic/Sodium controlled diet Prophylaxis -Heparin 5000 units sq tid for DVT -No GI required Disposition -Full code -Continue cardiac monitoring Visit type - Emergency Visit Emergency Visit: Yes ED Registration Date: 06/01/18 Care time: The patient presented to the Emergency Department on the above date and was hospitalized for further evaluation of their emergent condition. - New Patient This patient is new to me today: No - Critical Care Critical Care patient: No
--- NOTE | 2018-06-02 12:11 | CON.CARD ---
Consult Consult Specialty:: Cardiology Referred by:: Hospitalist Medicine Reason for Consultation:: PSVT, near syncope - History of Present Illness Chief Complaint: Near syncope History of Present Illness: 82 yom with PMhx of CAD s/p CABG 2005 (ARGUETA->LAD, SVG->LAD -D1), PCI (DESEAN to RCA , LCx 08/20), severe s/p TAVR Leslie 3 #26 bioprosthesis 11/2017, bladder stone s/p left sided ureteroscopy/lithrotrispy 01/2018, HTN, HLD, NIDDM, prostate ca s/p seeding, carotid stenosis, CKD, chronic anemia last seen in office 02/05/2018 when having coffee outside, felt dizzy/whoozy, got up when felt dizzy, felt was about to pass out when was supported by family and did not sustain true syncope. Denies any vision changes, chest pain, palpitations, LOC, head trauma, urinary or bowel incontinence around the episode, orthopnea, PND or LE edema. Patient reports his flomax was increased esteban 0.4 mg twice daily last week. He was also placed on 5 days of ceftin for UTI this week. He reports he was placed on desmopressin by his urologist but d/linda recently due to constipation. Has been stating ongoing constipation for last few months, has to strain to move his bowels. Last BM was 4-5 days ago, has tried OTC laxatives with not much results. Last colonoscopy was in 2007. Patient reports not checking his blood sugars recently, has been having polyuria , polydypsia and polyphagia. Found to have episodes of PSVT breaking with AV tony blockers. - History Source History Provided By: Patient Limitations to Obtaining History: No Limitations - Past Medical History SNACK STEWARDESS: Yes: Vertigo (/Meniere's disease), Other (carotid stenosis) Cardio/Vascular: Yes: CAD, Hyperlipdemia Hepatobiliary: Yes: Other (Gilbert's syndrome) Renal/: Yes: Cancer (prostate), Renal Calculi Endocrine: Yes: Diabetes Mellitus, Other (Vit D deficiency) - Past Surgical History Past Surgical History: Yes: Appendectomy, CABG, Hernia Repair (Left inguinal), Stent, Valve Replacement - Alcohol/Substance Use Hx Alcohol Use: No - Smoking History Smoking history: Never smoked Have you smoked in the past 12 months: No Aproximately how many cigarettes per day: 0 If you are a former smoker, when did you quit?: 1959 - Social History Occupation: former salesman Home Medications - Allergies Allergies/Adverse Reactions: Allergies Allergy/AdvReac Type Severity Reaction Status Date / Time morphine Allergy Verified 06/01/18 10:20 - Home Medications Home Medications: Ambulatory Orders Amlodipine Besylate 10 mg PO DAILY 06/01/18 Aspirin 81 mg PO DAILY 06/01/18 Atorvastatin Ca [Lipitor] 20 mg PO HS 06/01/18 Clopidogrel Bisulfate [Plavix] 75 mg PO DAILY 06/01/18 Desmopressin Acetate [Ddavp -] 0.1 mg PO HS 06/01/18 Lisinopril [Prinivil -] 40 mg PO DAILY 06/01/18 Losartan/Hydrochlorothiazide [Losartan-Hctz 100-25 mg Tab] 1 each PO AM Metformin HCl [Glucophage] 1,000 mg PO BID 06/01/18 Metoprolol Succinate [Toprol Xl -] 50 mg PO BID 06/01/18 Tamsulosin HCl [Flomax] 0.4 mg PO BID 06/01/18 Zolpidem Tartrate [Ambien] 10 mg PO HS 06/01/18 Review of Systems - Review of Systems Neurological: reports: Dizziness Vital Signs: Vital Signs Temperature 98.0 F 06/02/18 10:00 Pulse Rate 64 06/02/18 10:00 Respiratory Rate 20 06/02/18 10:00 Blood Pressure 138/40 L 06/02/18 10:00 O2 Sat by Pulse Oximetry (%) 100 06/02/18 09:00 Constitutional: Yes: No Distress, Calm Neck: Yes: Supple Respiratory: Yes: Regular, CTA Bilaterally Gastrointestinal: Yes: Normal Bowel Sounds, Soft Cardiovascular: Yes: Regular Rate and Rhythm JVD: No Carotid Bruit: No Heart Sounds: Yes: S1, S2 Murmur: Yes: Systolic Murmur, Grade 2 Edema: No - Other Data Labs, Other Data: CBC, BMP 06/02/18 05:30 06/02/18 05:30 INR, PTT INR 1.18 (0.83-1.09) H 06/02/18 05:30 Troponin, BNP 06/01/18 06/01/18 06/01/18 12:00 18:00 23:00 Troponin I 0.04 0.04 0.05 Troponin, BNP 06/01/18 06/01/18 06/01/18 12:00 18:00 23:00 Troponin I 0.04 0.04 0.05 SVT 190s->NSR Prior Cardiac Procedures: CABG, PTCA with Stent Ejection Fraction %: LVEF > or = 40 % Imaging - Results Chest X-ray: Report Reviewed (NAD) Problem List - Problems (1) S/P CABG (coronary artery bypass graft) Code(s): Z95.1 - PRESENCE OF AORTOCORONARY BYPASS GRAFT (2) Stented coronary artery Code(s): Z95.5 - PRESENCE OF CORONARY ANGIOPLASTY IMPLANT AND GRAFT (3) PSVT (paroxysmal supraventricular tachycardia) Code(s): I47.1 - SUPRAVENTRICULAR TACHYCARDIA (4) [id number] kidney injury Code(s): N17.9 - ACUTE KIDNEY FAILURE, UNSPECIFIED; N18.9 - CHRONIC KIDNEY DISEASE, UNSPECIFIED Qualifiers: Acute renal failure type: unspecified Chronic kidney disease stage: stage 2 (mild) Qualified Code(s): N17.9 - Acute kidney failure, unspecified; N18.2 - Chronic kidney disease, stage 2 (mild) (5) Light-headed Code(s): R42 - DIZZINESS AND GIDDINESS (6) CAD (coronary artery disease) Code(s): I25.10 - ATHSCL HEART DISEASE OF [place] CORONARY ARTERY W/O ANG PCTRS Qualifiers: Coronary Disease-Associated Artery/Lesion type: [place] artery [place] vs. transplanted heart: [place] heart Associated angina: without angina Qualified Code(s): I25.10 - Atherosclerotic heart disease of [place] coronary artery without angina pectoris (7) Diabetes mellitus Code(s): E11.9 - TYPE 2 DIABETES MELLITUS WITHOUT COMPLICATIONS Qualifiers: Diabetes mellitus type: type 2 Diabetes mellitus director long term care insulin use: without skilled nursing use Diabetes mellitus complication status: with kidney complications Diabetes mellitus complication detail: with microalbuminuria Qualified Code(s): E11.29 - Type 2 diabetes mellitus with other diabetic kidney complication; R80.9 - Proteinuria, unspecified (8) Hyperlipidemia Code(s): E78.5 - HYPERLIPIDEMIA, UNSPECIFIED Qualifiers: Hyperlipidemia type: mixed hyperlipidemia Qualified Code(s): E78.2 - Mixed hyperlipidemia (9) Hypertension Code(s): I10 - ESSENTIAL (PRIMARY) HYPERTENSION Qualifiers: Hypertension type: essential hypertension Qualified Code(s): I10 - Essential (primary) hypertension (10) Diastolic dysfunction Code(s): I51.9 - HEART DISEASE, UNSPECIFIED Assessment/Plan 09/16/2017 R&LHc: 2 vessel CAD patent stent prox and mid RCA, prox LCx, patent ARGUETA->LAD, SVG->LAD-D1 and mildly elevated right-sided pressures 08/13/2017 cLVH with normal LV size and fxn, LVEF 55-60%, mild LAE, normal RV size and fxn, severe ESTELLA 0.8 cm^2 MG 55 mmHg, mild AR, mod MR, mod TR RVSP 41 mmMg 08/05/2017 Lexiscan Myoview: No ischemia, normal LV size and fxn, LVEF 65% 1. Near syncope suspect hypovolemia, orthostasis, osmotic diuresis, increased flomax dose effect 2. PSVT->NSR 3. CAD s/p CABG, DESEAN 4. 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 Diastolic dysfunction 6. Hypertensive cardiovascular disease 7. Type 2 DM not well controlled 8. Hyperlipidemia 9. Moderate carotid stenosis 10. Acute on CKD with proteinuria 11. Anemia P:1. Wean off Cardizem gtt, agree with downtitration of Flomax and gentle hydration with monitor renal recovery, replete K 2. Hold Hyzaar, lisinopril pending renal function stabilization, check TSH and fasting lipid panel 3. Change Norvasc to Cardizem CD 120 qd, continue Toprol XL 50 bid with uptitration as tolerated 4. Continue ASA 81 qd, Lipitor 10 qd, Plavix 75 qd, consider Jardiance 10 qd as outpatient given CV benefits 5. Consider EP study and RF ablation as outpatient 6. F/u echo post TAVR 7. Thank you for consultative opportunity, patient to f/u with Dr. Odell upon d/c.
[2018-06-02] MEDS ORDERED: POTASSIUM CHLORIDE TABS 20 MEQ TABLET.ER (FP) PO ONE (12:45)
--- NOTE | 2018-06-02 13:17 | EKG ---
Test Reason : Blood Pressure : / mmHG Vent. Rate : 095 BPM Atrial Rate : 095 BPM P-R Int : 152 ms QRS Dur : 092 ms QT Int : 320 ms P-R-T Axes : 088 -21 005 degrees QTc Int : 402 ms SINUS RHYTHM WITH PREMATURE SUPRAVENTRICULAR COMPLEXES CANNOT RULE OUT INFERIOR INFARCT , AGE UNDETERMINED ABNORMAL ECG WHEN COMPARED WITH ECG OF 01-JUN-2018 18:24, MINIMAL CRITERIA FOR INFERIOR INFARCT ARE NOW PRESENT NON-SPECIFIC CHANGE IN ST SEGMENT IN INFERIOR LEADS Confirmed by COMFORT PEREZ, TAYLOR ([id number]) on 06/02/2018 1:16:40 PM Referred By: Confirmed By:TAYLOR MOYER MD
--- NOTE | 2018-06-02 13:23 | EKG ---
Test Reason : Blood Pressure : / mmHG Vent. Rate : 098 BPM Atrial Rate : 098 BPM P-R Int : 146 ms QRS Dur : 092 ms QT Int : 356 ms P-R-T Axes : 043 005 025 degrees QTc Int : 454 ms SINUS RHYTHM WITH PREMATURE ATRIAL COMPLEXES OTHERWISE NORMAL ECG WHEN COMPARED WITH ECG OF 01-JUN-2018 17:03, PREMATURE ATRIAL COMPLEXES ARE NOW PRESENT NONSPECIFIC T WAVE ABNORMALITY HAS REPLACED INVERTED T WAVES IN ANTERIOR LEADS Confirmed by COMFORT PEREZ, TAYLOR ([id number]) on 06/02/2018 1:22:50 PM Referred By: Confirmed By:TAYLOR MOYER MD
[2018-06-02] MEDS ORDERED: cefTRIAXone SODIUM 1 GM VIAL ONE (16:19)
[2018-06-02] MEDS ORDERED: DEXTROSE 5%-WATER - 50 ML IVPB ONE (16:20)
--- NOTE | 2018-06-02 16:23 | PN ---
Teaching Attending Note Name of Resident: Puja Kennedy ATTENDING PHYSICIAN STATEMENT I saw and evaluated the patient. I reviewed the resident's note and discussed the case with the resident. I agree with the resident's findings and plan as documented. SUBJECTIVE: Mr Jaimes says he is feeling well. Denies cp, sob, n/v. OBJECTIVE: Last Vital Signs Temp Pulse Resp BP Pulse Ox 36.7 C 64 20 138/40 L 100 06/02/18 10:00 06/02/18 10:00 06/02/18 10:00 06/02/18 10:00 06/02/18 09:00 Gen: nad Pulm: ctab w/o w/r/r CV: rrr w/o m/r/g Abd: +bs, s/nt/nd Ext: no c/c/e CBC, BMP 06/02/18 05:30 06/02/18 05:30 ASSESSMENT AND PLAN: Problem List - Problems (1) PSVT (paroxysmal supraventricular tachycardia) Assessment/Plan: -cardiology following and appreciate assistance -continue titration of diltiazem gtt -plan to change to oral diltiazem -monitor on telemetry Code(s): I47.1 - SUPRAVENTRICULAR TACHYCARDIA (2) Pre-syncope Assessment/Plan: -secondary to PSVT -monitor Code(s): R55 - SYNCOPE AND COLLAPSE (3) UTI (urinary tract infection) Assessment/Plan: -patient with retention (chronic) -however with straight catheter drained over 700mL that was purulent -send for culture -place on [facility] Code(s): N39.0 - URINARY TRACT INFECTION, SITE NOT SPECIFIED Qualifiers: Urinary tract infection type: acute cystitis Hematuria presence: without hematuria Qualified Code(s): N30.00 - Acute cystitis without hematuria (4) Diastolic dysfunction Assessment/Plan: -stable Code(s): I51.9 - HEART DISEASE, UNSPECIFIED (5) CAD (coronary artery disease) Assessment/Plan: -quiescent -continue current management -cardiology following Code(s): I25.10 - ATHSCL HEART DISEASE OF [place] CORONARY ARTERY W/O ANG PCTRS Qualifiers: Coronary Disease-Associated Artery/Lesion type: [place] artery [place] vs. transplanted heart: [place] heart Associated angina: without angina Qualified Code(s): I25.10 - Atherosclerotic heart disease of [place] coronary artery without angina pectoris (6) Diabetes mellitus Assessment/Plan: -start levemir 10 units qpm Code(s): E11.9 - TYPE 2 DIABETES MELLITUS WITHOUT COMPLICATIONS Qualifiers: Diabetes mellitus type: type 2 Diabetes mellitus alf insulin use: without alf use Diabetes mellitus complication status: with kidney complications Diabetes mellitus complication detail: with microalbuminuria Qualified Code(s): E11.29 - Type 2 diabetes mellitus with other diabetic kidney complication; R80.9 - Proteinuria, unspecified (7) Hyperlipidemia Assessment/Plan: -continue statin Code(s): E78.5 - HYPERLIPIDEMIA, UNSPECIFIED Qualifiers: Hyperlipidemia type: mixed hyperlipidemia Qualified Code(s): E78.2 - Mixed hyperlipidemia (8) Hypertension Assessment/Plan: -currently controlled Code(s): I10 - ESSENTIAL (PRIMARY) HYPERTENSION Qualifiers: Hypertension type: essential hypertension Qualified Code(s): I10 - Essential (primary) hypertension
[2018-06-02] MEDS: CEFTRIAXONE 1 GM in DEXTROSE 5%-WATER - 50 ML IVPB SCH (16:31)
[2018-06-02] MEDS: LIDOCAINE 5% TOPICAL PATCH TP SCH (17:44)
[2018-06-02] MEDS ORDERED: MAG HYDROX/AL HYDROX/SIMETH 30 ML UNIT-DOSE CUP PO ONE (18:49)
[2018-06-02] MEDS: ATORVASTATIN CA 20 MG TABLET (FP) PO SCH (21:46)
[2018-06-02] MEDS: LIDOCAINE PATCH REMOVAL MC SCH (21:53)
[2018-06-02] MEDS ORDERED: INSULIN (LEVEMIR) 100 UNITS/ML UNITS SQ SCH (22:00)
[2018-06-03] MEDS: HEPARIN NA (PORCINE) 5,000 UNITS/ML 1ML VIAL SQ SCH ×3 (05:10→22:30)
[2018-06-03] MEDS: INSULIN SLIDING SCALE (NOVOLOG) 1 VIAL SQ SCH ×4 (08:09→22:31)
[2018-06-03 08:21] LABS: ALBUMIN 2.5 g/dl (3.4-5.0); ALK PHOS 49 U/L (45-117); ANION GAP 7 MMOL/L (8-16); BILIRUBIN,TOTAL 0.7 mg/dL (0.2-1); BLOOD UREA NITROGEN 33 mg/dL (7-18); CHLORIDE 106 mmol/L (98-107); CHOLESTEROL 115 mg/dL (50-200); CO2 29 mmol/L (21-32); CREATININE 0.9 mg/dL (0.55-1.3); GLUCOSE,RANDOM 66 mg/dL (74-106); HDL CHOLESTEROL 44 mg/dL (40-60); PHOSPHOROUS 3.1 mg/dL (2.5-4.9); POTASSIUM 3.4 mmol/L (3.5-5.1); SGOT/AST 21 U/L (15-37); SGPT/ALT 26 U/L (13-61); SODIUM 143 mmol/L (136-145); TOT PROT 5.7 g/dl (6.4-8.2); TRIGLYCERIDES 82 mg/dL (0-150)
[2018-06-03] MEDS ORDERED: cefTRIAXone SODIUM 1 GM VIAL ONE (09:34)
[2018-06-03] MEDS ORDERED: DEXTROSE 5%-WATER - 50 ML IVPB ONE (09:34)
--- NOTE | 2018-06-03 10:02 | PN ---
Physical Exam: SUBJECTIVE: Patient seen and examined by me at bedside. No acute events overnight Patient off Cardizem drip Reports still not having a bowel movement Reports mild lower abdominal tenderness Fuentes placed yesterday with >1000cc of urine and cultures taken Otherwise, patient denies fever, chills, nausea, vomiting, chest pain, shortness of breath, dizziness, loss of consciousness. OBJECTIVE: Vital Signs Period Temp Pulse Resp BP Sys/Ocasio Pulse Ox Last 24 Hr 98 F-98.4 F 63-75 16-20 120-138/40-70 99-99 GENERAL: Awake, alert, and fully oriented, in no acute distress. EYES: Pupils equal, round and reactive to light, extraocular movements intact, sclera anicteric, conjunctiva clear. ENT: Oropharynx clear without exudates. Moist mucous membranes. LUNGS: Breath sounds equal, clear to auscultation bilaterally. No wheezes, and no crackles. No accessory muscle use. HEART: Regular rate and rhythm, normal S1 and S2 with diastolic murmur. ABDOMEN: Soft, mild lower abdominal tenderness, mild distention, normoactive bowel sounds, no guarding, no rebound, no masses. LOWER EXTREMITIES: No peripheral edema. Laboratory Results 06/03/18 06:43 06/03/18 06:43 Phosphorus 3.1 Magnesium 2.0 AST 21 ALT 26 Alkaline Phosphatase 49 Triglycerides 82 Cholesterol 115 Total LDL Cholesterol 59 HDL Cholesterol 44 Active Medications Generic Name Dose Route Start Last Admin Trade Name Freq PRN Reason Stop Dose Admin Adenosine 6 mg 06/01/18 22:46 Adenocard - IVPUSH PRN PRN svt Aspirin 81 mg 06/02/18 10:00 06/02/18 10:34 Asa - PO 81 mg DAILY VALENTE Administration Atorvastatin Calcium 20 mg 06/02/18 22:00 06/02/18 21:46 Lipitor - PO 20 mg HS VLAENTE Administration Clopidogrel Bisulfate 75 mg 06/02/18 10:00 06/02/18 10:34 Plavix - PO 75 mg DAILY VALENTE Administration Diltiazem HCl 120 mg 06/02/18 12:45 06/02/18 12:41 Cardizem Cd - PO 120 mg DAILY VALENTE Administration Docusate Sodium 100 mg 06/03/18 10:00 Colace - PO BID VALENTE Heparin Sodium (Porcine) 5,000 unit 06/02/18 06:00 06/03/18 05:10 Heparin - SQ 5,000 unit TID VALENTE Administration Ceftriaxone Sodium 1 gm/ 50 mls @ 100 mls/hr 06/02/18 15:15 06/02/18 16:31 Dextrose IVPB 100 mls/hr DAILY VALENTE Administration Protocol Insulin Aspart 1 vial 06/02/18 07:00 06/03/18 08:09 Novolog Vial Sliding Scale - SQ Not Given ACHS [facility] Protocol Insulin Detemir 10 units 06/02/18 22:00 06/02/18 21:53 Levemir Vial SQ 10 unit HS VALENTE Administration Lidocaine 1 patch 06/02/18 17:00 06/02/18 17:44 Lidoderm Patch - TP 1 patch DAILY VALENTE Administration Metoprolol Succinate 50 mg 06/02/18 10:00 06/02/18 21:49 Toprol Xl - PO 50 mg BID VALENTE Administration Miscellaneous 1 each 06/02/18 22:00 06/02/18 21:53 Lidoderm Patch Removal MC 1 each DAILY@2200 VALENTE Administration Polyethylene Glycol 17 gm 06/03/18 10:00 Miralax (For Daily Use) - PO BID VALENTE Senna 1 tab 06/02/18 10:00 06/02/18 21:49 Senna - PO 1 tab BID VALENTE Administration Zolpidem Tartrate 5 mg 06/01/18 22:46 06/02/18 23:36 Ambien - PO 5 mg HS PRN Administration INSOMNIA ASSESSMENT/PLAN: Patient is an 82 year old male who presented for lightheadedness and near syncopal episode. Patient admitted to telemetry for further monitoring and management. Near Syncopal Episode -Likely arhythmia related vs. infectious etiology -U/A revealed UTI. Cultures pending -Patient now on fuentes -No episodes of SVT since Cardizem started. Currently off the cardizem drip and on PO now -Carotid doppler no evidence of hemodynamically significant stenosis. SVT -Patient with several episodes of SVT with no response to Adenosine but responded well to Cardizem drip -Currently off Cardizem drip and now on Cardizem 120mg daily PO -Continue to monitor UTI Possible Proastatits -Continue Ceftriaxone 1gm daily (Day #2) -Urine culture pending -Will likely send out with PO antibiotics for 2-4 weeks. ANTHONY- Improving -Likely secondary from hypovolemia due to diuretic use and increase flomax dosage -Off of fluids. Fuentes in place -Hold CAROLINE/ARB/HCTZ -Renally dose medications -Continue to monitor BMP Leukocytosis -Likely UTI -Culture pending -Continue to monitor CBC Constipation -Aggressive bowel management with Miralax, Colace and Senna -Still no bowel movement. Lactulose PO ordered -Abdominal X-Ray pending -Will need outpatient colonoscopy. Last one 2007 with no malignancies CAD s/p CABG/PCI -Continue ASA -Continue Plavix -Lipid panel wnl, continue Lipitor 20mg NIDDMII -ISS -BGM -Last A1C 7.0% (03/2019) now 9.1% -Will need Jardiance as outpatient and possible long acting insulin -Continue Levemir 10 units HS Prostate Cancer -s/p seeding and laser treatment -Will resume Flomax 0.4mg BID HTN -Continue Metoprolol 50mg BID -Will need to dc Amlodipine 10mg daily and transition to PO Cardizem -Hold CAROLINE/ARB/HCTZ due to ANTHONY -Continue to monitor BP HLD -Continue Lipitor 20 HS Severe Aortic Stenosis -S/P TAVR -ECHO showed EF 65% F/E/N -Tolerating PO -Hypokalemia. replete and repeat -Diabetic/Sodium controlled diet Prophylaxis -Heparin 5000 units sq tid for DVT -No GI required Disposition -Full code -Continue cardiac monitoring Visit type - Emergency Visit Emergency Visit: Yes ED Registration Date: 06/01/18 Care time: The patient presented to the Emergency Department on the above date and was hospitalized for further evaluation of their emergent condition. - New Patient This patient is new to me today: No - Critical Care Critical Care patient: No
[2018-06-03] MEDS ORDERED: POTASSIUM CHLORIDE TABS 20 MEQ TABLET.ER (FP) PO ONE (10:30)
[2018-06-03] MEDS ORDERED: LACTULOSE 20 GM/30 ML UDC (FOR ORAL USE ONLY) PO ONE (10:30)
[2018-06-03] MEDS: POLYETHYLENE GLYCOL 3350 119 GM BTL PO SCH ×2 (10:46→22:29)
[2018-06-03] MEDS: DOCUSATE SODIUM 100 MG CAPSULE (FP) PO SCH ×2 (10:46→22:30)
[2018-06-03] MEDS: ASPIRIN 81 MG CHEWABLE TABLETS PO SCH (10:47)
[2018-06-03] MEDS: SENNOSIDES 8.6MG TABLET (FP) PO SCH ×2 (10:47→22:31)
[2018-06-03] MEDS: CLOPIDOGREL BISULFATE 75 MG TABLET (FP) PO SCH (10:47)
[2018-06-03] MEDS: CEFTRIAXONE 1 GM in DEXTROSE 5%-WATER - 50 ML IVPB SCH (10:47)
[2018-06-03] MEDS: LIDOCAINE 5% TOPICAL PATCH TP SCH (10:48)
--- NOTE | 2018-06-03 10:49 | PN ---
Progress Note, Physician Chief Complaint: Events noted Feels better History of Present Illness: Patient was seen and examined. Awake and alert. Chart was reviewed Denies chest pain, SOB or palpitations No further PSVT - Current Medication List Current Medications: Active Medications Adenosine (Adenocard -) 6 mg IVPUSH PRN PRN PRN Reason: svt Aspirin (Asa -) 81 mg PO DAILY [facility] Last Admin: 06/02/18 10:34 Dose: 81 mg Atorvastatin Calcium (Lipitor -) 20 mg PO HS [facility] Last Admin: 06/02/18 21:46 Dose: 20 mg Clopidogrel Bisulfate (Plavix -) 75 mg PO DAILY [facility] Last Admin: 06/02/18 10:34 Dose: 75 mg Diltiazem HCl (Cardizem Cd -) 120 mg PO DAILY [facility] Last Admin: 06/02/18 12:41 Dose: 120 mg Docusate Sodium (Colace -) 100 mg PO BID [facility] Heparin Sodium (Porcine) (Heparin -) 5,000 unit SQ TID [facility] Last Admin: 06/03/18 05:10 Dose: 5,000 unit Ceftriaxone Sodium 1 gm/ (Dextrose) 50 mls @ 100 mls/hr IVPB DAILY [facility]; Protocol Last Admin: 06/02/18 16:31 Dose: 100 mls/hr Insulin Aspart (Novolog Vial Sliding Scale -) 1 vial SQ ACHS [facility]; Protocol Last Admin: 06/03/18 08:09 Dose: Not Given Insulin Detemir (Levemir Vial) 10 units SQ ACBK [facility] Lidocaine (Lidoderm Patch -) 1 patch TP DAILY [facility] Last Admin: 06/02/18 17:44 Dose: 1 patch Metoprolol Succinate (Toprol Xl -) 50 mg PO BID [facility] Last Admin: 06/02/18 21:49 Dose: 50 mg Miscellaneous (Lidoderm Patch Removal) 1 each MC DAILY@2200 [facility] Last Admin: 06/02/18 21:53 Dose: 1 each Polyethylene Glycol (Miralax (For Daily Use) -) 17 gm PO BID [facility] Senna (Senna -) 1 tab PO BID [facility] Last Admin: 06/02/18 21:49 Dose: 1 tab Zolpidem Tartrate (Ambien -) 5 mg PO HS PRN PRN Reason: INSOMNIA Last Admin: 06/02/18 23:36 Dose: 5 mg - Objective Vital Signs: Vital Signs Temperature 98.3 F 06/03/18 08:57 Pulse Rate 75 06/03/18 08:57 Respiratory Rate 16 06/03/18 09:00 Blood Pressure 131/55 L 06/03/18 08:57 O2 Sat by Pulse Oximetry (%) 99 06/03/18 09:00 Eyes: Yes: PERRL HENT: Yes: Atraumatic Neck: Yes: Supple Cardiovascular: Yes: Regular Rate and Rhythm, Murmur (SM), S1, S2 Respiratory: Yes: CTA Bilaterally Gastrointestinal: Yes: Normal Bowel Sounds, Soft. No: Tenderness Edema: No Additional Findings/Remarks: - Review of Systems Constitutional: denies: Chills, Fever Cardiovascular: reports: Palpitations, Shortness of Breath. denies: Chest Pain Respiratory: denies: SOB, SOB on Exertion. denies: Cough, Hemoptysis, Orthopnea , PND Gastrointestinal: denies: Abdominal Pain, Constipation, Diarrhea, Melena, Nausea , Rectal Bleeding, Vomiting Genitourinary: denies: Dysuria, Hematuria Neurological: denies: Dizziness, Headache, Seizure, Syncope Labs: CBC, BMP 06/03/18 06:43 INR, PTT INR 1.18 (0.83-1.09) H 06/02/18 05:30 Problem List - Problems (1) [id number] kidney injury Code(s): N17.9 - ACUTE KIDNEY FAILURE, UNSPECIFIED; N18.9 - CHRONIC KIDNEY DISEASE, UNSPECIFIED Qualifiers: Acute renal failure type: unspecified Chronic kidney disease stage: stage 2 (mild) Qualified Code(s): N17.9 - Acute kidney failure, unspecified; N18.2 - Chronic kidney disease, stage 2 (mild) (2) Diastolic dysfunction Code(s): I51.9 - HEART DISEASE, UNSPECIFIED (3) PSVT (paroxysmal supraventricular tachycardia) Code(s): I47.1 - SUPRAVENTRICULAR TACHYCARDIA (4) Pre-syncope Code(s): R55 - SYNCOPE AND COLLAPSE (5) S/P CABG (coronary artery bypass graft) Code(s): Z95.1 - PRESENCE OF AORTOCORONARY BYPASS GRAFT (6) Stented coronary artery Code(s): Z95.5 - PRESENCE OF CORONARY ANGIOPLASTY IMPLANT AND GRAFT (7) CAD (coronary artery disease) Code(s): I25.10 - ATHSCL HEART DISEASE OF [place] CORONARY ARTERY W/O ANG PCTRS Qualifiers: Coronary Disease-Associated Artery/Lesion type: [place] artery [place] vs. transplanted heart: [place] heart Associated angina: without angina Qualified Code(s): I25.10 - Atherosclerotic heart disease of [place] coronary artery without angina pectoris (8) Diabetes mellitus Code(s): E11.9 - TYPE 2 DIABETES MELLITUS WITHOUT COMPLICATIONS Qualifiers: Diabetes mellitus type: type 2 Diabetes mellitus ad terminal makeup operator insulin use: without ad terminal makeup operator use Diabetes mellitus complication status: with kidney complications Diabetes mellitus complication detail: with microalbuminuria Qualified Code(s): E11.29 - Type 2 diabetes mellitus with other diabetic kidney complication; R80.9 - Proteinuria, unspecified (9) Hyperlipidemia Code(s): E78.5 - HYPERLIPIDEMIA, UNSPECIFIED Qualifiers: Hyperlipidemia type: mixed hyperlipidemia Qualified Code(s): E78.2 - Mixed hyperlipidemia (10) Hypertension Code(s): I10 - ESSENTIAL (PRIMARY) HYPERTENSION Qualifiers: Hypertension type: essential hypertension Qualified Code(s): I10 - Essential (primary) hypertension Assessment/Plan 1. Near syncop 2. PSVT 3. CAD s/p CABG, PCI/DESEAN 4. Severe s/p TAVR 5. Diastolic dysfunction 6. Hypertensive cardiovascular disease 7. Type 2 DM 8. Hypercholesterolemia 9. Moderate carotid stenosis 10. Acute on CKD with proteinuria 11. Anemia PLAN: 1. Continue Cardizem CD 120 mg QD and Toprol XL 50 mg BID with uptitration as tolerated 2. Continue ASA 81 mg QD, Lipitor 10 mg QD, Plavix 75 mg QD and consider Jardiance 10 qd as outpatient given CV benefits 3. Consider EP study and RF ablation as outpatient 4. Echocardiography was reviewed 5. Follow up with Dr. Xavi Odell as outpatient Further plans are to follow Vignesh Haque MD
[2018-06-03 10:50] LABS: BASO % 0.5 % (0-2.0); EOS % 0.9 % (0-4.5); HEMOGLOBIN 9.4 GM/dL (11.7-16.9); LYMPH % 9.9 % (8-40); MCH 28.5 pg (25.7-33.7); MCHC 33.5 g/dl (32.0-35.9); MEAN CELL VOLUME 85.1 fl (80-96); MEAN PLT VOLUME 7.8 fl (7.5-11.1); MONO % 7.9 % (3.8-10.2); NEUT % 80.8 % (42.8-82.8); PLATELET COUNT 320 K/MM3 (134-434); RBC 3.29 M/mm3 (4.00-5.60); RDW 14.1 % (11.9-15.9); WHITE BLOOD COUNT 12.3 K/mm3 (4.0-10.0)
--- NOTE | 2018-06-03 12:24 | EKG ---
Test Reason : Blood Pressure : / mmHG Vent. Rate : 187 BPM Atrial Rate : 182 BPM P-R Int : 000 ms QRS Dur : 088 ms QT Int : 264 ms P-R-T Axes : 000 022 -18 degrees QTc Int : 465 ms SUPRAVENTRICULAR TACHYCARDIA INFERIOR INFARCT (CITED ON OR BEFORE 01-JUN-2018) ABNORMAL ECG WHEN COMPARED WITH ECG OF 01-JUN-2018 21:28, PREMATURE SUPRAVENTRICULAR COMPLEXES ARE NO LONGER PRESENT VENT. RATE HAS INCREASED BY [address] NOW DEPRESSED IN ANTERIOR LEADS Confirmed by DARCY FULTON MD ([id number]) on 06/03/2018 12:24:09 PM Referred By: Confirmed By:DARCY FULTON MD
--- NOTE | 2018-06-03 13:16 | PN ---
Teaching Attending Note Name of Resident: Puja Kennedy ATTENDING PHYSICIAN STATEMENT I saw and evaluated the patient. I reviewed the resident's note and discussed the case with the resident. I agree with the resident's findings and plan as documented. SUBJECTIVE: Mr Jaimes says he is feeling well today. No cp, sob, n/v OBJECTIVE: Last Vital Signs Temp Pulse Resp BP Pulse Ox 36.8 C 65 15 131/55 L 99 06/03/18 08:57 06/03/18 13:00 06/03/18 13:00 06/03/18 08:57 06/03/18 09:00 Gen: nad Pulm: ctab w/o w/r/r CV: rrr w/o m/r/g Abd: +bs, s/nt/nd Ext: no c/c/e CBC, BMP 06/03/18 06:43 06/03/18 06:43 ASSESSMENT AND PLAN: (1) PSVT (paroxysmal supraventricular tachycardia) Assessment/Plan: -cardiology following -well controlled -continue oral diltiazem -currently in sinus rhythm Code(s): I47.1 - SUPRAVENTRICULAR TACHYCARDIA (2) Pre-syncope Assessment/Plan: -secondary to PSVT -has not recurred Code(s): R55 - SYNCOPE AND COLLAPSE (3) UTI (urinary tract infection), suspected prostatitis Assessment/Plan: -continue rocephin -await cultures -even if negative, considering leukocytosis and urinalysis will continue treatment for complicated UTI -also must consider prostatitis -cannot use quinolones secondary to allergy -may consider bactrim (will need close follow up) or doxycycline as penetrates the prostate capsule Code(s): N39.0 - URINARY TRACT INFECTION, SITE NOT SPECIFIED Qualifiers: Urinary tract infection type: acute cystitis Hematuria presence: without hematuria Qualified Code(s): N30.00 - Acute cystitis without hematuria (4) Diastolic dysfunction Assessment/Plan: -stable Code(s): I51.9 - HEART DISEASE, UNSPECIFIED (5) CAD (coronary artery disease) Assessment/Plan: -quiescent -continue current management -cardiology following Code(s): I25.10 - ATHSCL HEART DISEASE OF [place] CORONARY ARTERY W/O ANG PCTRS Qualifiers: Coronary Disease-Associated Artery/Lesion type: [place] artery [place] vs. transplanted heart: [place] heart Associated angina: without angina Qualified Code(s): I25.10 - Atherosclerotic heart disease of [place] coronary artery without angina pectoris (6) Diabetes mellitus Assessment/Plan: -change levemir to 10 units qam Code(s): E11.9 - TYPE 2 DIABETES MELLITUS WITHOUT COMPLICATIONS Qualifiers: Diabetes mellitus type: type 2 Diabetes mellitus intermediate frame tender insulin use: without intermediate frame tender use Diabetes mellitus complication status: with kidney complications Diabetes mellitus complication detail: with microalbuminuria Qualified Code(s): E11.29 - Type 2 diabetes mellitus with other diabetic kidney complication; R80.9 - Proteinuria, unspecified (7) Hyperlipidemia Assessment/Plan: -continue statin Code(s): E78.5 - HYPERLIPIDEMIA, UNSPECIFIED Qualifiers: Hyperlipidemia type: mixed hyperlipidemia Qualified Code(s): E78.2 - Mixed hyperlipidemia (8) Hypertension Assessment/Plan: -currently controlled Code(s): I10 - ESSENTIAL (PRIMARY) HYPERTENSION Qualifiers: Hypertension type: essential hypertension Qualified Code(s): I10 - Essential (primary) hypertension Problem List - Problems (1) PSVT (paroxysmal supraventricular tachycardia) Code(s): I47.1 - SUPRAVENTRICULAR TACHYCARDIA (2) Pre-syncope Code(s): R55 - SYNCOPE AND COLLAPSE (3) UTI (urinary tract infection) Code(s): N39.0 - URINARY TRACT INFECTION, SITE NOT SPECIFIED Qualifiers: Urinary tract infection type: acute cystitis Hematuria presence: without hematuria Qualified Code(s): N30.00 - Acute cystitis without hematuria (4) Diastolic dysfunction Code(s): I51.9 - HEART DISEASE, UNSPECIFIED (5) CAD (coronary artery disease) Code(s): I25.10 - ATHSCL HEART DISEASE OF [place] CORONARY ARTERY W/O ANG PCTRS Qualifiers: Coronary Disease-Associated Artery/Lesion type: [place] artery [place] vs. transplanted heart: [place] heart Associated angina: without angina Qualified Code(s): I25.10 - Atherosclerotic heart disease of [place] coronary artery without angina pectoris (6) Diabetes mellitus Code(s): E11.9 - TYPE 2 DIABETES MELLITUS WITHOUT COMPLICATIONS Qualifiers: Diabetes mellitus type: type 2 Diabetes mellitus shelter insulin use: without intermediate frame tender use Diabetes mellitus complication status: with kidney complications Diabetes mellitus complication detail: with microalbuminuria Qualified Code(s): E11.29 - Type 2 diabetes mellitus with other diabetic kidney complication; R80.9 - Proteinuria, unspecified (7) Hyperlipidemia Code(s): E78.5 - HYPERLIPIDEMIA, UNSPECIFIED Qualifiers: Hyperlipidemia type: mixed hyperlipidemia Qualified Code(s): E78.2 - Mixed hyperlipidemia (8) Hypertension Code(s): I10 - ESSENTIAL (PRIMARY) HYPERTENSION Qualifiers: Hypertension type: essential hypertension Qualified Code(s): I10 - Essential (primary) hypertension
[2018-06-03 13:53] VITALS: BMI 22.8
[2018-06-03] MEDS: ZOLPIDEM TARTRATE 5 MG TABLET PO PRN (22:30)
[2018-06-03] MEDS: ATORVASTATIN CA 20 MG TABLET (FP) PO SCH (22:30)
[2018-06-03] MEDS: LIDOCAINE PATCH REMOVAL MC SCH (22:31)
[2018-06-04] MEDS: INSULIN SLIDING SCALE (NOVOLOG) 1 VIAL SQ SCH ×4 (06:47→22:21)
[2018-06-04] MEDS: INSULIN (LEVEMIR) 100 UNITS/ML UNITS SQ SCH (06:47)
[2018-06-04] MEDS: HEPARIN NA (PORCINE) 5,000 UNITS/ML 1ML VIAL SQ SCH ×3 (06:47→22:21)
[2018-06-04 07:00] LABS: HEMATOCRIT 26.8 % (35.4-49); HEMOGLOBIN 9.4 GM/dL (11.7-16.9); MCH 29.5 pg (25.7-33.7); MEAN CELL VOLUME 84.3 fl (80-96); MEAN PLT VOLUME 7.8 fl (7.5-11.1); PLATELET COUNT 310 K/MM3 (134-434); RBC 3.18 M/mm3 (4.00-5.60); WHITE BLOOD COUNT 9.7 K/mm3 (4.0-10.0)
[2018-06-04 07:45] LABS: ANION GAP 8 MMOL/L (8-16); BLOOD UREA NITROGEN 24 mg/dL (7-18); CALCIUM 7.5 mg/dL (8.5-10.1); CHLORIDE 104 mmol/L (98-107); CO2 28 mmol/L (21-32); CREATININE 0.8 mg/dL (0.55-1.3); GLUCOSE,RANDOM 92 mg/dL (74-106); POTASSIUM 3.9 mmol/L (3.5-5.1); SODIUM 139 mmol/L (136-145)
[2018-06-04] MEDS ORDERED: cefTRIAXone SODIUM 1 GM VIAL ONE (08:36)
[2018-06-04] MEDS ORDERED: DEXTROSE 5%-WATER - 50 ML IVPB ONE (08:36)
[2018-06-04] MEDS: CLOPIDOGREL BISULFATE 75 MG TABLET (FP) PO SCH (09:32)
[2018-06-04] MEDS: SENNOSIDES 8.6MG TABLET (FP) PO SCH ×2 (09:32→22:21)
[2018-06-04] MEDS: LIDOCAINE 5% TOPICAL PATCH TP SCH (09:32)
[2018-06-04] MEDS: DOCUSATE SODIUM 100 MG CAPSULE (FP) PO SCH ×2 (09:32→22:21)
[2018-06-04] MEDS: ASPIRIN 81 MG CHEWABLE TABLETS PO SCH (09:32)
[2018-06-04] MEDS: CEFTRIAXONE 1 GM in DEXTROSE 5%-WATER - 50 ML IVPB SCH (09:33)
[2018-06-04] MEDS: POLYETHYLENE GLYCOL 3350 119 GM BTL PO SCH ×2 (10:50→22:21)
--- NOTE | 2018-06-04 11:46 | PN ---
Progress Note, Physician Chief Complaint: Mr Jaimes is without complaint. No cp, sob, n/v. - Current Medication List Current Medications: Active Medications Adenosine (Adenocard -) 6 mg IVPUSH PRN PRN PRN Reason: svt Aspirin (Asa -) 81 mg PO DAILY [facility] Last Admin: 06/04/18 09:32 Dose: 81 mg Atorvastatin Calcium (Lipitor -) 20 mg PO HS [facility] Last Admin: 06/03/18 22:30 Dose: 20 mg Clopidogrel Bisulfate (Plavix -) 75 mg PO DAILY [facility] Last Admin: 06/04/18 09:32 Dose: 75 mg Diltiazem HCl (Cardizem Cd -) 120 mg PO DAILY [facility] Last Admin: 06/04/18 09:32 Dose: 120 mg Docusate Sodium (Colace -) 100 mg PO BID [facility] Last Admin: 06/04/18 09:32 Dose: 100 mg Heparin Sodium (Porcine) (Heparin -) 5,000 unit SQ TID [facility] Last Admin: 06/04/18 06:47 Dose: 5,000 unit Ceftriaxone Sodium 1 gm/ (Dextrose) 50 mls @ 100 mls/hr IVPB DAILY [facility]; Protocol Last Admin: 06/04/18 09:33 Dose: 100 mls/hr Insulin Aspart (Novolog Vial Sliding Scale -) 1 vial SQ ACHS [facility]; Protocol Last Admin: 06/04/18 11:34 Dose: 4 unit Insulin Detemir (Levemir Vial) 10 units SQ ACBK [facility] Last Admin: 06/04/18 06:47 Dose: 10 units Lidocaine (Lidoderm Patch -) 1 patch TP DAILY [facility] Last Admin: 06/04/18 09:32 Dose: 1 patch Metoprolol Succinate (Toprol Xl -) 50 mg PO BID [facility] Last Admin: 06/04/18 09:33 Dose: 50 mg Miscellaneous (Lidoderm Patch Removal) 1 each MC DAILY@2200 [facility] Last Admin: 06/03/18 22:31 Dose: 1 each Polyethylene Glycol (Miralax (For Daily Use) -) 17 gm PO BID [facility] Last Admin: 06/04/18 10:50 Dose: 17 grams Senna (Senna -) 1 tab PO BID [facility] Last Admin: 06/04/18 09:32 Dose: 1 tab Zolpidem Tartrate (Ambien -) 5 mg PO HS PRN PRN Reason: INSOMNIA Last Admin: 06/03/18 22:30 Dose: 5 mg - Objective Vital Signs: Vital Signs Temperature 36.9 C 06/04/18 10:00 Pulse Rate 73 06/04/18 10:00 Respiratory Rate 18 06/04/18 10:00 Blood Pressure 153/58 L 06/04/18 10:00 O2 Sat by Pulse Oximetry (%) 98 06/04/18 09:00 Constitutional: Yes: Well Nourished, No Distress, Calm Cardiovascular: Yes: Regular Rate and Rhythm. No: Gallop, Murmur, Rub Respiratory: Yes: Regular, CTA Bilaterally. No: Rales, Rhonchi, Wheezes Gastrointestinal: Yes: Normal Bowel Sounds, Soft. No: Distention, Tenderness Genitourinary: Yes: Rhoades Present Extremities: Yes: WNL Edema: No Labs: CBC, BMP 06/04/18 05:30 06/04/18 05:30 INR, PTT INR 1.18 (0.83-1.09) H 06/02/18 05:30 Problem List - Problems (1) PSVT (paroxysmal supraventricular tachycardia) Code(s): I47.1 - SUPRAVENTRICULAR TACHYCARDIA (2) Pre-syncope Code(s): R55 - SYNCOPE AND COLLAPSE (3) UTI (urinary tract infection) Code(s): N39.0 - URINARY TRACT INFECTION, SITE NOT SPECIFIED Qualifiers: Urinary tract infection type: acute cystitis Hematuria presence: without hematuria Qualified Code(s): N30.00 - Acute cystitis without hematuria (4) Diastolic dysfunction Code(s): I51.9 - HEART DISEASE, UNSPECIFIED (5) CAD (coronary artery disease) Code(s): I25.10 - ATHSCL HEART DISEASE OF [place] CORONARY ARTERY W/O ANG PCTRS Qualifiers: Coronary Disease-Associated Artery/Lesion type: [place] artery [place] vs. transplanted heart: [place] heart Associated angina: without angina Qualified Code(s): I25.10 - Atherosclerotic heart disease of [place] coronary artery without angina pectoris (6) Diabetes mellitus Code(s): E11.9 - TYPE 2 DIABETES MELLITUS WITHOUT COMPLICATIONS Qualifiers: Diabetes mellitus type: type 2 Diabetes mellitus custodial insulin use: without keno terminal operator use Diabetes mellitus complication status: with kidney complications Diabetes mellitus complication detail: with microalbuminuria Qualified Code(s): E11.29 - Type 2 diabetes mellitus with other diabetic kidney complication; R80.9 - Proteinuria, unspecified (7) Hyperlipidemia Code(s): E78.5 - HYPERLIPIDEMIA, UNSPECIFIED Qualifiers: Hyperlipidemia type: mixed hyperlipidemia Qualified Code(s): E78.2 - Mixed hyperlipidemia (8) Hypertension Code(s): I10 - ESSENTIAL (PRIMARY) HYPERTENSION Qualifiers: Hypertension type: essential hypertension Qualified Code(s): I10 - Essential (primary) hypertension Assessment/Plan (1) PSVT (paroxysmal supraventricular tachycardia) Assessment/Plan: -continue diltiazem Code(s): I47.1 - SUPRAVENTRICULAR TACHYCARDIA (2) Pre-syncope Assessment/Plan: -secondary to PSVT -has not recurred Code(s): R55 - SYNCOPE AND COLLAPSE (3) UTI (urinary tract infection), suspected prostatitis Assessment/Plan: -growing presumptive MRSA -continue rocephin -ID consult Code(s): N39.0 - URINARY TRACT INFECTION, SITE NOT SPECIFIED Qualifiers: Urinary tract infection type: acute cystitis Hematuria presence: without hematuria Qualified Code(s): N30.00 - Acute cystitis without hematuria (4) Diastolic dysfunction Assessment/Plan: -stable Code(s): I51.9 - HEART DISEASE, UNSPECIFIED (5) CAD (coronary artery disease) Assessment/Plan: -quiescent -continue current management -cardiology following Code(s): I25.10 - ATHSCL HEART DISEASE OF [place] CORONARY ARTERY W/O ANG PCTRS Qualifiers: Coronary Disease-Associated Artery/Lesion type: [place] artery [place] vs. transplanted heart: [place] heart Associated angina: without angina Qualified Code(s): I25.10 - Atherosclerotic heart disease of [place] coronary artery without angina pectoris (6) Diabetes mellitus Assessment/Plan: -continue levemir 10 units qam Code(s): E11.9 - TYPE 2 DIABETES MELLITUS WITHOUT COMPLICATIONS Qualifiers: Diabetes mellitus type: type 2 Diabetes mellitus custodial insulin use: without keno terminal operator use Diabetes mellitus complication status: with kidney complications Diabetes mellitus complication detail: with microalbuminuria Qualified Code(s): E11.29 - Type 2 diabetes mellitus with other diabetic kidney complication; R80.9 - Proteinuria, unspecified (7) Hyperlipidemia Assessment/Plan: -continue statin Code(s): E78.5 - HYPERLIPIDEMIA, UNSPECIFIED Qualifiers: Hyperlipidemia type: mixed hyperlipidemia Qualified Code(s): E78.2 - Mixed hyperlipidemia (8) Hypertension Assessment/Plan: -currently controlled Code(s): I10 - ESSENTIAL (PRIMARY) HYPERTENSION Qualifiers: Hypertension type: essential hypertension Qualified Code(s): I10 - Essential (primary) hypertension
--- NOTE | 2018-06-04 13:29 | PN ---
Progress Note, Physician History of Present Illness: No further recurrence of PSVT, started abx for UTI. - Current Medication List Current Medications: Active Medications Adenosine (Adenocard -) 6 mg IVPUSH PRN PRN PRN Reason: svt Aspirin (Asa -) 81 mg PO DAILY [facility] Last Admin: 06/04/18 09:32 Dose: 81 mg Atorvastatin Calcium (Lipitor -) 20 mg PO HS [facility] Last Admin: 06/03/18 22:30 Dose: 20 mg Clopidogrel Bisulfate (Plavix -) 75 mg PO DAILY [facility] Last Admin: 06/04/18 09:32 Dose: 75 mg Diltiazem HCl (Cardizem Cd -) 120 mg PO DAILY [facility] Last Admin: 06/04/18 09:32 Dose: 120 mg Docusate Sodium (Colace -) 100 mg PO BID [facility] Last Admin: 06/04/18 09:32 Dose: 100 mg Heparin Sodium (Porcine) (Heparin -) 5,000 unit SQ TID [facility] Last Admin: 06/04/18 06:47 Dose: 5,000 unit Ceftriaxone Sodium 1 gm/ (Dextrose) 50 mls @ 100 mls/hr IVPB DAILY [facility]; Protocol Last Admin: 06/04/18 09:33 Dose: 100 mls/hr Insulin Aspart (Novolog Vial Sliding Scale -) 1 vial SQ ACHS [facility]; Protocol Last Admin: 06/04/18 11:34 Dose: 4 unit Insulin Detemir (Levemir Vial) 10 units SQ ACBK [facility] Last Admin: 06/04/18 06:47 Dose: 10 units Lidocaine (Lidoderm Patch -) 1 patch TP DAILY [facility] Last Admin: 06/04/18 09:32 Dose: 1 patch Metoprolol Succinate (Toprol Xl -) 50 mg PO BID [facility] Last Admin: 06/04/18 09:33 Dose: 50 mg Miscellaneous (Lidoderm Patch Removal) 1 each MC DAILY@2200 [facility] Last Admin: 06/03/18 22:31 Dose: 1 each Polyethylene Glycol (Miralax (For Daily Use) -) 17 gm PO BID [facility] Last Admin: 06/04/18 10:50 Dose: 17 grams Senna (Senna -) 1 tab PO BID [facility] Last Admin: 06/04/18 09:32 Dose: 1 tab Zolpidem Tartrate (Ambien -) 5 mg PO HS PRN PRN Reason: INSOMNIA Last Admin: 06/03/18 22:30 Dose: 5 mg - Objective Vital Signs: Vital Signs Temperature 98.4 F 06/04/18 10:00 Pulse Rate 73 06/04/18 10:00 Respiratory Rate 18 06/04/18 10:00 Blood Pressure 153/58 L 06/04/18 10:00 O2 Sat by Pulse Oximetry (%) 98 06/04/18 09:00 Constitutional: Yes: No Distress, Calm, Thin Neck: Yes: Supple Cardiovascular: Yes: Regular Rate and Rhythm, Murmur (1/6 SM) Respiratory: Yes: Regular, CTA Bilaterally Gastrointestinal: Yes: Normal Bowel Sounds, Soft Edema: No Labs: CBC, BMP 06/04/18 05:30 06/04/18 05:30 INR, PTT INR 1.18 (0.83-1.09) H 06/02/18 05:30 Problem List - Problems (1) S/P CABG (coronary artery bypass graft) Code(s): Z95.1 - PRESENCE OF AORTOCORONARY BYPASS GRAFT (2) Stented coronary artery Code(s): Z95.5 - PRESENCE OF CORONARY ANGIOPLASTY IMPLANT AND GRAFT (3) PSVT (paroxysmal supraventricular tachycardia) Code(s): I47.1 - SUPRAVENTRICULAR TACHYCARDIA (4) [id number] kidney injury Code(s): N17.9 - ACUTE KIDNEY FAILURE, UNSPECIFIED; N18.9 - CHRONIC KIDNEY DISEASE, UNSPECIFIED Qualifiers: Acute renal failure type: unspecified Chronic kidney disease stage: stage 2 (mild) Qualified Code(s): N17.9 - Acute kidney failure, unspecified; N18.2 - Chronic kidney disease, stage 2 (mild) (5) Light-headed Code(s): R42 - DIZZINESS AND GIDDINESS (6) CAD (coronary artery disease) Code(s): I25.10 - ATHSCL HEART DISEASE OF [place] CORONARY ARTERY W/O ANG PCTRS Qualifiers: Coronary Disease-Associated Artery/Lesion type: [place] artery [place] vs. transplanted heart: [place] heart Associated angina: without angina Qualified Code(s): I25.10 - Atherosclerotic heart disease of [place] coronary artery without angina pectoris (7) Diabetes mellitus Code(s): E11.9 - TYPE 2 DIABETES MELLITUS WITHOUT COMPLICATIONS Qualifiers: Diabetes mellitus type: type 2 Diabetes mellitus freight shipping agent insulin use: without mcfp use Diabetes mellitus complication status: with kidney complications Diabetes mellitus complication detail: with microalbuminuria Qualified Code(s): E11.29 - Type 2 diabetes mellitus with other diabetic kidney complication; R80.9 - Proteinuria, unspecified (8) Hyperlipidemia Code(s): E78.5 - HYPERLIPIDEMIA, UNSPECIFIED Qualifiers: Hyperlipidemia type: mixed hyperlipidemia Qualified Code(s): E78.2 - Mixed hyperlipidemia (9) Hypertension Code(s): I10 - ESSENTIAL (PRIMARY) HYPERTENSION Qualifiers: Hypertension type: essential hypertension Qualified Code(s): I10 - Essential (primary) hypertension (10) Diastolic dysfunction Code(s): I51.9 - HEART DISEASE, UNSPECIFIED Assessment/Plan 06/01/2018 Echo: Normal LV and RV size and fxn, normal atrial sizes, mild-mod MR , mild TR, bioAVR MG 7.3 mmHg 09/16/2017 R&LHc: 2 vessel CAD patent stent prox and mid RCA, prox LCx, patent ARGUETA->LAD, SVG->LAD-D1 and mildly elevated right-sided pressures 08/13/2017 cLVH with normal LV size and fxn, LVEF 55-60%, mild LAE, normal RV size and fxn, severe ESTELLA 0.8 cm^2 MG 55 mmHg, mild AR, mod MR, mod TR RVSP 41 mmMg 08/05/2017 Lexiscan Myoview: No ischemia, normal LV size and fxn, LVEF 65% 1. Near syncope resolved 2. PSVT->NSR 3. CAD s/p CABG, DESEAN 4. 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 Diastolic dysfunction 6. Hypertensive cardiovascular disease 7. Type 2 DM not well controlled 8. Hyperlipidemia 9. Moderate carotid stenosis 10. Acute on CKD with proteinuria improving 11. Anemia 12. MRSA UTI P:1. 1. Resume losartan 25 qd with uptitration as tolerated given renal function stabilization 2. Continue Cardizem CD 120 qd and Toprol XL 50 bid with uptitration as tolerated 3. Continue ASA 81 qd, Lipitor 20 qd, Plavix 75 qd, consider Jardiance 10 qd as outpatient given CV benefits 4. Consider EP study and RF ablation as outpatient 5. Complete abx course
[2018-06-04] MEDS: LOSARTAN POTASSIUM 25 MG TABLET PO SCH (14:29)
[2018-06-04] MEDS: ATORVASTATIN CA 20 MG TABLET (FP) PO SCH (22:20)
[2018-06-04] MEDS: ZOLPIDEM TARTRATE 5 MG TABLET PO PRN (22:20)
[2018-06-04] MEDS: LIDOCAINE PATCH REMOVAL MC SCH (22:21)
[2018-06-05] MEDS: INSULIN SLIDING SCALE (NOVOLOG) 1 VIAL SQ SCH ×2 (06:54→11:00)
[2018-06-05] MEDS: INSULIN (LEVEMIR) 100 UNITS/ML UNITS SQ SCH (06:54)
[2018-06-05] MEDS: HEPARIN NA (PORCINE) 5,000 UNITS/ML 1ML VIAL SQ SCH ×2 (06:54→13:12)
[2018-06-05 07:17] LABS: ANION GAP 8 MMOL/L (8-16); BLOOD UREA NITROGEN 20 mg/dL (7-18); CHLORIDE 104 mmol/L (98-107); CO2 28 mmol/L (21-32); CREATININE 0.8 mg/dL (0.55-1.3); GLUCOSE,RANDOM 78 mg/dL (74-106); MAGNESIUM 1.8 mg/dL (1.8-2.4); PHOSPHOROUS 3.4 mg/dL (2.5-4.9); SODIUM 140 mmol/L (136-145)
[2018-06-05 07:22] LABS: BASO % 0.7 % (0-2.0); EOS % 1.9 % (0-4.5); HEMATOCRIT 28.2 % (35.4-49); HEMOGLOBIN 9.9 GM/dL (11.7-16.9); LYMPH % 12.5 % (8-40); MCH 29.6 pg (25.7-33.7); MCHC 35.2 g/dl (32.0-35.9); MEAN CELL VOLUME 84.1 fl (80-96); MEAN PLT VOLUME 7.8 fl (7.5-11.1); MONO % 9.1 % (3.8-10.2); NEUT % 75.8 % (42.8-82.8); PLATELET COUNT 346 K/MM3 (134-434); RBC 3.35 M/mm3 (4.00-5.60); RDW 13.9 % (11.9-15.9); WHITE BLOOD COUNT 10.2 K/mm3 (4.0-10.0)
[2018-06-05] MEDS ORDERED: cefTRIAXone SODIUM 1 GM VIAL ONE (08:49)
[2018-06-05] MEDS ORDERED: DEXTROSE 5%-WATER - 50 ML IVPB ONE (08:49)
--- NOTE | 2018-06-05 08:57 | PN ---
Progress Note (short form) - Note Progress Note: Chief Complaint: Events noted, notes reviewed, denies any chest pain or dyspnea , sinus rhythm is noted, Rhoades catheter in situ History of Present Illness: Seen and examined on telemetry. Events noted, notes reviewed, denies any chest pain or dyspnea, sinus rhythm is noted, Rhoades catheter in situ Current Medications: Current Medications Adenosine (Adenocard -) 6 mg IVPUSH PRN PRN PRN Reason: svt Aspirin (Asa -) 81 mg PO DAILY [facility] Last Admin: 06/04/18 09:32 Dose: 81 mg Atorvastatin Calcium (Lipitor -) 20 mg PO HS [facility] Last Admin: 06/04/18 22:20 Dose: 20 mg Clopidogrel Bisulfate (Plavix -) 75 mg PO DAILY [facility] Last Admin: 06/04/18 09:32 Dose: 75 mg Diltiazem HCl (Cardizem Cd -) 120 mg PO DAILY [facility] Last Admin: 06/04/18 09:32 Dose: 120 mg Docusate Sodium (Colace -) 100 mg PO BID [facility] Last Admin: 06/04/18 22:21 Dose: Not Given Heparin Sodium (Porcine) (Heparin -) 5,000 unit SQ TID [facility] Last Admin: 06/05/18 06:54 Dose: 5,000 unit Ceftriaxone Sodium 1 gm/ (Dextrose) 50 mls @ 100 mls/hr IVPB DAILY [facility]; Protocol Last Admin: 06/04/18 09:33 Dose: 100 mls/hr Insulin Aspart (Novolog Vial Sliding Scale -) 1 vial SQ ACHS [facility]; Protocol Last Admin: 06/05/18 06:54 Dose: Not Given Insulin Detemir (Levemir Vial) 10 units SQ ACBK [facility] Last Admin: 06/05/18 06:54 Dose: Not Given Lidocaine (Lidoderm Patch -) 1 patch TP DAILY [facility] Last Admin: 06/04/18 09:32 Dose: 1 patch Losartan Potassium (Cozaar -) 25 mg PO DAILY [facility] Last Admin: 06/04/18 14:29 Dose: 25 mg Metoprolol Succinate (Toprol Xl -) 50 mg PO BID [facility] Last Admin: 06/04/18 22:21 Dose: 50 mg Miscellaneous (Lidoderm Patch Removal) 1 each MC DAILY@2200 [facility] Last Admin: 06/04/18 22:21 Dose: 1 each Polyethylene Glycol (Miralax (For Daily Use) -) 17 gm PO BID [facility] Last Admin: 06/04/18 22:21 Dose: Not Given Senna (Senna -) 1 tab PO BID [facility] Last Admin: 06/04/18 22:21 Dose: Not Given Review of Systems Constitutional: denies Chills or Fever Respiratory: denies Cough or Sputum Production Cardiovascular: As noted above Gastrointestinal: denies Nausea, Vomiting, Diarrhea, Constipation or Abdominal Pain Genitourinary: As noted above, Rhoades catheter in situ Musculoskeletal: No symptoms reported - Objective Vital Signs: Last Vital Signs Temp Pulse Resp BP Pulse Ox 98.0 F 63 18 136/58 L 99 06/05/18 06:50 06/05/18 06:50 06/05/18 06:50 06/05/18 06:50 06/04/18 21:00 Intake & Output 06/02/18 06/03/18 06/04/18 06/05/18 23:59 23:59 23:59 23:59 Intake Total 1310 630 600 10 Output Total 2500 3700 1800 Balance -1190 630 -3100 -1790 Weight 146 lb Neck: Supple Negative JVD No bruit Respiratory: Clear to A&P Bilaterally Cardiovascular: S1, S2 Regular Rate Rhythm Grade 1-2/6 BARRY Gastrointestinal: Soft Benign Normal Bowel Sounds Ext: Edema Labs: CBC, BMP 06/05/18 05:30 06/05/18 05:30 Hepatic Panel Total Bilirubin 0.7 mg/dL (0.2-1) 06/03/18 06:43 AST 21 U/L (15-37) 06/03/18 06:43 ALT 26 U/L (13-61) 06/03/18 06:43 Alkaline Phosphatase 49 U/L (45-117) 06/03/18 06:43 Albumin 2.5 g/dl (3.4-5.0) L 06/03/18 06:43 Assessment/Plan ASSESSMENT: 1. Near syncope resolved 2. PSVT probable AV tony re-entrant tachycardia currently in sinus rhythm 3. CAD post CABG, post DESEAN angina pectoris 4. Severe post TAVR 11/2017 5. Diastolic LV dysfunction with clinical class 0 NYHA classification LV failure 6. Hypertensive cardiovascular disease 7. DM 8. Hyperlipidemia 9. Moderate carotid stenosis 10. Acute on CKD with proteinuria, resolving 11. Anemia 12. MRSA UTI, obstructive uropathy with Rhoades catheter in situ PLAN: 1. Continue Losartan and titrate dose as tolerated and needed with close monitoring of renal function 2. Continue Cardizem CD 3. Continue Toprol XL 4. Continue ASA and Plavix with close monitoring of CBC 5. Continue Lipitor 6. Antibiotics as per primar y team 7. Consider Jardiance as outpatient given CV benefits 8. May consider EP study and RF ablation for the above noted PSVT/if recurrent as outpatient, discussed in detail with the patient and family Xavi Odell MD
[2018-06-05] MEDS: DOCUSATE SODIUM 100 MG CAPSULE (FP) PO SCH (09:28)
[2018-06-05] MEDS: ASPIRIN 81 MG CHEWABLE TABLETS PO SCH (09:28)
[2018-06-05] MEDS: SENNOSIDES 8.6MG TABLET (FP) PO SCH (09:28)
[2018-06-05] MEDS: CEFTRIAXONE 1 GM in DEXTROSE 5%-WATER - 50 ML IVPB SCH (09:28)
[2018-06-05] MEDS: CLOPIDOGREL BISULFATE 75 MG TABLET (FP) PO SCH (09:28)
[2018-06-05] MEDS: LOSARTAN POTASSIUM 25 MG TABLET PO SCH (09:28)
[2018-06-05] MEDS: LIDOCAINE 5% TOPICAL PATCH TP SCH (09:32)
[2018-06-05] MEDS: POLYETHYLENE GLYCOL 3350 119 GM BTL PO SCH (09:33)
[2018-06-05] MEDS ORDERED: SULFAMETHOXAZOLE/TRIMETHOPRIM 800MG/160MG D.S. TABLET PO SCH (12:45)
--- NOTE | 2018-06-05 12:48 | PN ---
Progress Note (short form) - Note Progress Note: ID CONSULT DICTATED UTI ? PROSTATITIS ACUTE URINARY RETENTION + URINE C/S MRSA WILL OBTAIN BC ( R/O BACTEREMIA ) BACTRIM PO BID X 3W FOR PRESUMED PROSTATITIS OUTPATIENT UROLOGY FOLLOW UP
--- NOTE | 2018-06-05 13:20 | CONS ---
DATE OF CONSULTATION: DATE OF DICTATION: 06/05/2018 HISTORY OF PRESENT ILLNESS: The patient is an 82-year-old male who is evaluated for urinary tract infection, possible prostatitis. He was admitted to the hospital on June 01, 2018, with near syncope after complaining of lightheadedness. He was admitted to the telemetry floor where he underwent cardiac evaluation. His hospital course was complicated by pyuria and acute urinary retention. He was noted to have 1993 white cells in the urine. Urine culture grew MRSA. He required insertion of a Rhoades catheter for acute urinary retention. At the present time he is comfortable. He denies any suprapubic or flank pain. Urine is concentrated but not grossly purulent. He denies any fever or chills. According to the chart he has had recent manipulation. PAST MEDICAL HISTORY: Positive for nephrolithiasis, prostate cancer, hypertension, hyperlipidemia, coronary artery disease. PAST SURGICAL HISTORY: Status post coronary artery stent, left inguinal hernia, coronary artery bypass, TAVR. ALLERGIES: FLUOROQUINOLONES and MORPHINE. Patient is unaware of the nature of the allergy. MEDICATIONS: Include Adenocard, aspirin, Lipitor, Plavix, diltiazem, losartan, metoprolol. SOCIAL HISTORY: Resides at home with family members. He is a nonsmoker. Occasional ETOH. SYSTEMS REVIEW:Neurologic: As per HPI. Cardiac: As per HPI. Respiratory: Negative cough or sputum production. Gastrointestinal: Negative vomiting or diarrhea. Genitourinary: As per HPI. LABORATORY DATA: White count 10.2, hematocrit 28.2, platelet count 346. BUN 20, creatinine 0.8. PHYSICAL EXAMINATION:General: He is out of bed to chair. He is in no acute distress. He is nontoxic appearing. Vital Signs: Temperature 98.6, blood pressure 135/58, pulse 75, regular, respirations 20 per minute. HEENT: Sclerae are anicteric. Cardiac: Heart sounds S1, S2. Lungs: Clear bilaterally. No rhonchi, rales or wheezing. Abdomen: Soft. There is no suprapubic or flank tenderness. A Rhoades catheter is in place. Urine is not grossly purulent. Extremities: Negative for edema. IMPRESSION: 1. Urinary tract infection. 2. Possible prostatitis. 3. Acute urinary retention. 4. Positive urine culture, methicillin=resistant Staphylococcus aureus. RECOMMENDATIONS: Will obtain blood cultures to rule out possible bacteremia with seeding of the genitourinary tract. Substitute Bactrim double strength twice daily for 3 weeks for presumed prostatitis. Outpatient urology followup. Contact precautions for MRSA. Thank you for the kind referral. YONI JOSEPH M.D. [facility]/[id number]
--- NOTE | 2018-06-05 13:21 | EKG ---
Test Reason : Blood Pressure : / mmHG Vent. Rate : 092 BPM Atrial Rate : 092 BPM P-R Int : 146 ms QRS Dur : 104 ms QT Int : 360 ms P-R-T Axes : 014 010 022 degrees QTc Int : 445 ms NORMAL SINUS RHYTHM T WAVE ABNORMALITY, CONSIDER ANTERIOR ISCHEMIA ABNORMAL ECG WHEN COMPARED WITH ECG OF 01-JUN-2018 16:55, VENT. RATE HAS DECREASED BY [address] NO LONGER DEPRESSED IN INFERIOR LEADS ST NO LONGER DEPRESSED IN ANTEROLATERAL LEADS Confirmed by YONI MCKEON MD ([id number]) on 06/05/2018 1:20:43 PM Referred By: Confirmed By:YONI MCKEON MD
[2018-06-05 14:46] VITALS: BP 140/69; PULSE 67; TEMP 98.3
--- NOTE | 2018-06-05 15:28 | DS ---
Physical Examination Vital Signs: Vital Signs Temperature 36.8 C 06/05/18 14:00 Pulse Rate 67 06/05/18 14:00 Respiratory Rate 20 06/05/18 14:00 Blood Pressure 140/69 06/05/18 14:00 O2 Sat by Pulse Oximetry (%) 98 06/05/18 09:00 Constitutional: Yes: Well Nourished, No Distress, Calm Cardiovascular: Yes: Regular Rate and Rhythm. No: Gallop, Murmur, Rub Respiratory: Yes: Regular, CTA Bilaterally. No: Rales, Rhonchi, Wheezes Gastrointestinal: Yes: Normal Bowel Sounds, Soft. No: Distention, Tenderness Extremities: Yes: WNL Edema: No Labs: CBC, BMP 06/05/18 05:30 06/05/18 05:30 Discharge Summary Reason For Visit: LIGHTHEADENESS Current Active Problems Lphxz-yn-quafdeo kidney injury (Acute) Diastolic dysfunction (Acute) Light-headed (Acute) PSVT (paroxysmal supraventricular tachycardia) (Acute) Pre-syncope (Acute) S/P CABG (coronary artery bypass graft) (Acute) Stented coronary artery (Acute) UTI (urinary tract infection) (Acute) Hospital Course: (1) PSVT (paroxysmal supraventricular tachycardia) Code(s): I47.1 - SUPRAVENTRICULAR TACHYCARDIA (2) Pre-syncope Code(s): R55 - SYNCOPE AND COLLAPSE (3) UTI (urinary tract infection) Code(s): N39.0 - URINARY TRACT INFECTION, SITE NOT SPECIFIED Qualifiers: Urinary tract infection type: acute cystitis Hematuria presence: without hematuria Qualified Code(s): N30.00 - Acute cystitis without hematuria (4) Diastolic dysfunction Code(s): I51.9 - HEART DISEASE, UNSPECIFIED (5) CAD (coronary artery disease) Code(s): I25.10 - ATHSCL HEART DISEASE OF [place] CORONARY ARTERY W/O ANG PCTRS Qualifiers: Coronary Disease-Associated Artery/Lesion type: [place] artery [place] vs. transplanted heart: [place] heart Associated angina: without angina Qualified Code(s): I25.10 - Atherosclerotic heart disease of [place] coronary artery without angina pectoris (6) Diabetes mellitus Code(s): E11.9 - TYPE 2 DIABETES MELLITUS WITHOUT COMPLICATIONS Qualifiers: Diabetes mellitus type: type 2 Diabetes mellitus roasterman insulin use: without roasterman use Diabetes mellitus complication status: with kidney complications Diabetes mellitus complication detail: with microalbuminuria Qualified Code(s): E11.29 - Type 2 diabetes mellitus with other diabetic kidney complication; R80.9 - Proteinuria, unspecified (7) Hyperlipidemia Code(s): E78.5 - HYPERLIPIDEMIA, UNSPECIFIED Qualifiers: Hyperlipidemia type: mixed hyperlipidemia Qualified Code(s): E78.2 - Mixed hyperlipidemia (8) Hypertension Code(s): I10 - ESSENTIAL (PRIMARY) HYPERTENSION Qualifiers: Hypertension type: essential hypertension Qualified Code(s): I10 - Essential (primary) hypertension Mr Jaimes is a very pleasant 82 year old male who presented to the hospital with presyncope and was found to have PSVT. He was admitted to the hospital on telemetry and started on a diltiazem gtt. Cardiology was consulted since this was new onset. He was continued on his home dose of metoprolol while he was on the diltiazem gtt. The diltiazem was successfully titrated off and he was transitioned to oral diltiazem without complications. He remained in sinus rhythm after being started on the diltiazem gtt. Because he presented with presyncope he had an echocardiogram and carotid dopplers. On admission he was noted to have leukocytosis and was incontinent of urine. He was found to be retaining urine and a fuentes was placed. 1200mL of urine drained and it was purulent in nature. Urinalysis and urine cultures were sent and he was started on empiric rocephin. Urine cultures were positive for MRSA, ID was consulted and recommended he start on bactrim DS 1 tablet daily. Considering month history of retention with multiple fuentes placement and repeated UTIs, there is consideration of chronic prostatitis. He will be discharged on 3 weeks of bactrim with close follow up with his urologist for further evaluation. He will also be discharged with the fuentes in place and be evaluated by urology for removal as an outpatient. Because he is transitioned to bactrim, I will not continue his ARB considering interaction between the two. He should also have a BMP checked in 1 week and this can be followed up by Dr Padilla or Dr Odell. Defer to Dr Padilla when to restart ARB. Plan was discussed with patient's daughter in law per patients request. 33 minutes spent in preparation of this discharge Condition: Stable - Instructions Diet, Activity, Other Instructions: Resume previous diet and activity. Referrals: Landon Zamora MD [Staff Physician] - Claudy Padilla MD [Primary Care Provider] - Disposition: HOME - Home Medications Comprehensive Discharge Medication List: Ambulatory Orders Aspirin 81 mg PO DAILY 06/01/18 Atorvastatin Ca [Lipitor] 20 mg PO HS 06/01/18 Clopidogrel Bisulfate [Plavix] 75 mg PO DAILY 06/01/18 Metoprolol Succinate [Toprol XL -] 50 mg PO BID 06/01/18 Tamsulosin HCl [Flomax] 0.4 mg PO BID 06/01/18 Zolpidem Tartrate [Ambien] 10 mg PO HS 06/01/18 Diltiazem Cd [Cardizem Cd -] 120 mg PO DAILY #30 cap.cd.24h 06/05/18 Docusate Sodium [Colace -] 100 mg PO BID #60 capsule 06/05/18 Insulin Detemir [Levemir Flextouch] 10 unit SQ AM #1 insuln.pen 06/05/18 Lidocaine 5% Patch [Lidoderm -] 1 patch TP DAILY #30 patch 06/05/18 Lidocaine Patch Removal [Lidoderm Patch Removal] 1 each MC DAILY@2200 #30 each 06/05/18 Polyethylene Glycol 3350 [Miralax 119 gm Btl -] 17 gm PO BID #1 bottle 06/05/18 Sennosides [Senna -] 1 tab PO BID #60 tablet 06/05/18 Sulfamethoxazole/Trimethoprim [Bactrim DS -] 1 each PO BID #42 tablet 06/05/18
== END 2018-06-05 16:12 | disposition home or self-care (01) | DRG 683 ==
LOC: JER 10:00 → JERBED 13:37 → OBSVTOIN 16:03 → J4S 21:04 → J4W 22:32
PROVIDERS: ADMIT Hospitalist; ATTEND Internal Medicine
DX: N17.9 Acute kidney failure, unspecified (principal); I47.1 Supraventricular tachycardia; N39.0 Urinary tract infection, site not specified; I25.10 Atherosclerotic heart disease of native coronary artery without angina pectoris; E78.5 Hyperlipidemia, unspecified; R33.9 Retention of urine, unspecified; B95.62 Methicillin resistant Staphylococcus aureus infection as the cause of diseases classified elsewhere; R55 Syncope and collapse; N41.9 Inflammatory disease of prostate, unspecified; I25.119 Atherosclerotic heart disease of native coronary artery with unspecified angina pectoris; Z95.1 Presence of aortocoronary bypass graft; Z98.61 Coronary angioplasty status; I13.10 Hypertensive heart and chronic kidney disease without heart failure, with stage 1 through stage 4 chronic kidney disease, or unspecified chronic kidney disease; E11.22 Type 2 diabetes mellitus with diabetic chronic kidney disease; N18.9 Chronic kidney disease, unspecified; D72.829 Elevated white blood cell count, unspecified; K59.00 Constipation, unspecified; I35.0 Nonrheumatic aortic (valve) stenosis; E87.6 Hypokalemia; R00.0 Tachycardia, unspecified
CPT/HCPCS: 36415; 71045-TC-FY; 74018-TC-FY; 80048; 80053; 80061; 81003; 81015; 82550; 82962; 83036; 83721; 83735; 84100; 84484; 85025; 85027; 85610; 87040; 87086; 87186; 93005; 93010; 93306-TC; 93880-TC; 99285-25; G0378; J1644; J7030

== ENCOUNTER 2019-04-03 09:13 | Observation (INO) | payer BC, OTHER ==
[2019-04-03 09:25] VITALS: TEMP 97.9; BMI 20.3
[2019-04-03] MEDS ORDERED: SODIUM CHLORIDE 1,000 ML IV STA (10:40)
[2019-04-03 10:56] LABS: VENOUS PC02 31.2 mmHg (38-52); VENOUS PH 7.53 (7.31-7.41)
[2019-04-03 10:58] LABS: BASO % 0.2 % (0-2.0); EOS % 0.2 % (0-4.5); HEMOGLOBIN 9.2 GM/dL (11.7-16.9); LYMPH % 5.1 % (8-40); MCH 30.4 pg (25.7-33.7); MCHC 33.9 g/dl (32.0-35.9); MEAN CELL VOLUME 89.4 fl (80-96); MEAN PLT VOLUME 7.4 fl (7.5-11.1); MONO % 4.5 % (3.8-10.2); PLATELET COUNT 120 K/MM3 (134-434); RBC 3.02 M/mm3 (4.00-5.60); WHITE BLOOD COUNT 7.3 K/mm3 (4.0-10.0)
[2019-04-03 11:04] LABS: INR 1.06 (0.83-1.09); PROTHROMBIN TIME (PATIENT) 12.5 SEC (9.7-13.0)
[2019-04-03 11:06] LABS: EPI CELLS 14.7 /HPF (0-5/HPF); HYALINE CASTS 117 /lpf (0-8); PH,URINE 5.5 (5.0-8.0); URINE APPEARANCE TURBID; URINE BACTERIA 965.8 /hpf (NEGATIVE); URINE BILIRUBIN NEGATIVE (NEGATIVE); URINE COLOR YELLOW; URINE GLUCOSE (UA) 1+ (NEGATIVE); URINE KETONE TRACE (NEGATIVE); URINE LEUK ESTERASE 1+ (NEGATIVE); URINE NITRITE POSITIVE (NEGATIVE); URINE PROTEIN TRACE (NEGATIVE); URINE RBC 1 /hpf (0-4); URINE UROBILINOGEN 0.2 mg/dL (0.2-1.0); URINE WBC 12 /hpf (0-5)
[2019-04-03 11:07] LABS: ACTIVATED PTT 29.8 SECONDS (25.2-36.5)
[2019-04-03 11:28] LABS: ALBUMIN 3.7 g/dl (3.4-5.0); BILIRUBIN,TOTAL 1.3 mg/dL (0.2-1); CALCIUM 8.8 mg/dL (8.5-10.1); N-TERMINAL BNP 1196.8 pg/ml (5-450); POTASSIUM 3.1 mmol/L (3.5-5.1); TOT PROT 6.6 g/dl (6.4-8.2)
--- NOTE | 2019-04-03 11:31 | PDOC ---
Documentation entered by Tanner Salazar SCRIBE, acting as scribe for Sergei Taylor MD. Sergei Taylor MD: This documentation has been prepared by the Martin rosales Nirvannie, SCRIBE, under my direction and personally reviewed by me in its entirety. I confirm that the documentation accurately reflects all work, treatment, procedures, and medical decision making performed by me. History of Present Illness - General Chief Complaint: Weakness Stated Complaint: SYNCOPE/NEAR SYNCOPE Time Seen by Provider: 04/03/19 09:47 History Source: Patient, Family (Daughter in law. ) Exam Limitations: No Limitations - History of Present Illness Initial Comments: 04/03/19 11:08 The patient is an 83 year old male, with a significant past medical history of HTN, HLD, NIDDM, CAD (s/p cardiac stent placement x 3, CABG, Afib (on Amiodarone and Eliquis), Stage III Bladder [place] [facility] [place]/p bladder and prostate [place] who presents to the emergency department with lightheadedness and multiple falls. As per patient, he woke up this morning in his usual state of health. After getting ready he began to experience diarrhea and nausea followed by lightheadedness. He denies any LOC but states that he had multiple falls. Pt's last chemo infusion was Thursday. He has never had this type of reaction to it before. Pt notes that his sugars have been elevated recently despite compliance with meds. Daughter in law notes he has been on Macrobid for 2 days (started 04/01) for possible UTI. He denies any recent fevers or chills. He denies any recent nausea, vomiting, or abdominal pain. He denies any recent chest pain or shortness of breath. He denies any hematuria. Allergies: Quinolones, Morphine. Primary Care Physician: Dr. Padilla Past History - Past Medical History Allergies/Adverse Reactions: Allergies Allergy/AdvReac Type Severity Reaction Status Date / Time Quinolones Allergy Unknown Verified 04/03/19 09:22 morphine Allergy Verified 04/03/19 09:22 Home Medications: Ambulatory Orders Aspirin 81 mg PO DAILY 06/01/18 Atorvastatin Ca [Lipitor] 20 mg PO HS 06/01/18 Clopidogrel Bisulfate [Plavix] 75 mg PO DAILY 06/01/18 Metoprolol Succinate [Toprol XL -] 50 mg PO BID 06/01/18 Tamsulosin HCl [Flomax] 0.4 mg PO BID 06/01/18 Zolpidem Tartrate [Ambien] 10 mg PO HS 06/01/18 Diltiazem Cd [Cardizem Cd -] 120 mg PO DAILY #30 cap.cd.24h 06/05/18 Docusate Sodium [Colace -] 100 mg PO BID #60 capsule 06/05/18 Insulin Detemir [Levemir Flextouch] 10 unit SQ AM #1 insuln.pen 06/05/18 Lidocaine 5% Patch [Lidoderm -] 1 patch TP DAILY #30 patch 06/05/18 Lidocaine Patch Removal [Lidoderm Patch Removal] 1 each MC DAILY@2200 #30 each 06/05/18 Polyethylene Glycol 3350 [Miralax 119 gm Btl -] 17 gm PO BID #1 bottle 06/05/18 Sennosides [Senna -] 1 tab PO BID #60 tablet 06/05/18 Sulfamethoxazole/Trimethoprim [Bactrim DS -] 1 each PO BID #42 tablet 06/05/18 Anemia: Yes Asthma: No Cancer: Yes (PROSTATE CA) Cardiac Disorders: (CAD,ANGINA,AORTIC STENOSIS) CVA: No COPD: No CHF: No Dementia: No Diabetes: Yes (NIDDM) GI Disorders: No Disorders: Yes (kidney stones) HTN: Yes Hypercholesterolemia: Yes Liver Disease: No Seizures: No Thyroid Disease: No - Surgical History Abdominal Surgery: Yes (RIGHT HERNIA REPAIR 2012) Appendectomy: Yes (1957) Cardiac Surgery: Yes (DOULBE BYPASS AND STENTSW, cow valve replacement) Cholecystectomy: No Lung Surgery: No Neurologic Surgery: No Orthopedic Surgery: No - Psycho Social/Smoking Cessation Hx Smoking Status: Yes Smoking History: Unknown if ever smoked Years of Tobacco Use: 30 Have you smoked in the past 12 months: No Number of Cigarettes Smoked Daily: 0 If you are a former smoker, when did you quit?: 1960 Cigars Per Day: 5 'Breaking Loose' booklet given: 09/03/11 Hx Alcohol Use: No Drug/Substance Use Hx: No Substance Use Type: Alcohol Hx Substance Use Treatment: No Review of Systems - Review of Systems Able to Perform ROS?: Yes Comments:: 04/03/19 11:08 GENERAL/CONSTITUTIONAL: + weakness. No fever or chills. HEAD, EYES, EARS, NOSE AND THROAT: No change in vision. No ear pain or discharge. No sore throat. CARDIOVASCULAR: + lightheadedness, No chest pain, no shortness of breath, no loss of consciousness RESPIRATORY: No cough, wheezing, or hemoptysis. GASTROINTESTINAL: + diarrhea. + nausea. No vomiting or constipation. GENITOURINARY: No dysuria, frequency, or change in urination. MUSCULOSKELETAL: No joint or muscle swelling or pain. No neck or back pain. SKIN: No rash NEUROLOGIC: No vertigo, no change in strength/sensation. ENDOCRINE: No increased thirst. No abnormal weight change. HEMATOLOGIC/LYMPHATIC: No anemia, easy bleeding, or history of blood clots. ALLERGIC/IMMUNOLOGIC: No hives or skin allergy. All Other Systems: Reviewed and Negative *Physical Exam - Vital Signs Last Vital Signs Temp Pulse Resp BP Pulse Ox 97.9 F 54 L 16 186/60 H 98 04/03/19 09:15 04/03/19 09:15 04/03/19 09:15 04/03/19 09:15 04/03/19 09:15 - Physical Exam Comments: 04/03/19 10:37 "GENERAL: Awake, alert, and fully oriented, in no acute distress. HEAD: No signs of trauma EYES: PERRLA, EOMI, sclera anicteric, conjunctiva clear ENT: Auricles normal inspection, hearing grossly normal, nares patent, oropharynx clear without exudates. Moist mucosa NECK: Nontender, no stepoffs, Normal ROM, supple, no lymphadenopathy, JVD, or masses LUNGS: Breath sounds equal, clear to auscultation bilaterally. No wheezes, and no crackles HEART: Regular rate and rhythm, normal S1 and S2, no murmurs, rubs or gallops ABDOMEN: + urostomy pouch with clear yellow urine, Soft, nontender, normoactive bowel sounds. No guarding, no rebound. No masses EXTREMITIES: Normal range of motion, no edema. No clubbing or cyanosis. No cords, erythema, or tenderness NEUROLOGICAL: Cranial nerves II through XII intact. 5/5 strength and sensation in all extremities, Normal speech, normal gait, normal cerebellar function SKIN: Warm, Dry, normal turgor, no rashes or lesions noted. ED Treatment Course - LABORATORY CBC & Chemistry Diagram: 04/03/19 10:35 04/03/19 10:35 - ADDITIONAL ORDERS Additional order review: Laboratory Results 04/03/19 09:24 POC Glucometer 382 04/03/19 09:24 POC Glucometer 382 - RADIOLOGY Radiology Studies Ordered: Category Date Time Status HEAD CT WITHOUT CONTRAST [CT] Stat CT Scan 04/03/19 10:06 Ordered CHEST X-RAY PORTABLE* [RAD] Stat Radiology 04/03/19 09:48 Completed Medical Decision Making - Medical Decision Making 04/03/19 10:38 83 M with syncopal episode today. Will evaluate for infectious process as pt is immune compromised. Also may be 2/2 dehydration given recent diarrheal illness, as well as persistently elevated sugars at home. - Labs, cultures - CT head - CXR, UA - IVF - Admit 04/03/19 11:44 UA consistent with UTI, will start ceftriaxone Labs otherwise unremarkable, pt not neutropenic. Sugar elevated but AG wnl CXR shows skin fold vs PTX, but pt without CP/SOB. Lung sounds equal, no clinical evidence of PTX. 04/03/19 13:[address] Padilla Pt admitted to hospitalist Discharge - Discharge Information Problems reviewed: Yes Clinical Impression/Diagnosis: Syncope, UTI (urinary tract infection), Weakness - Admission Yes - Follow up/Referral Referrals: Claudy Padilla MD [Primary Care Provider] - - Patient Discharge Instructions - Post Discharge Activity
[2019-04-03] MEDS ORDERED: CEFTRIAXONE 1,000 MG in DEXTROSE 5%-WATER - 50 ML IVPB ONE (11:39)
[2019-04-03 11:45] LABS: ANISOCYTOSIS 2+; PLATELET ESTIMATE DECREASED
[2019-04-03] MEDS ORDERED: CEFTRIAXONE 1 GM/50 ML BAG ONE (12:23)
[2019-04-03] MEDS ORDERED: POTASSIUM CHLORIDE TABS 20 MEQ TABLET.ER (FP) PO ONE ×3 (12:57→20:36)
[2019-04-03] MEDS ORDERED: VANCOMYCIN 1 GM in D5W (PRE-DOCKED) 1,000 MG/250 ML IVPB ONE (13:30)
--- NOTE | 2019-04-03 13:49 | EKG ---
Test Reason : Blood Pressure : / mmHG Vent. Rate : 048 BPM Atrial Rate : 048 BPM P-R Int : 182 ms QRS Dur : 112 ms QT Int : 558 ms P-R-T Axes : 092 -11 026 degrees QTc Int : 498 ms SINUS BRADYCARDIA NONSPECIFIC ST ABNORMALITY PROLONGED QT ABNORMAL ECG WHEN COMPARED WITH ECG OF 01-JUN-2018 21:28, VENT. RATE HAS DECREASED BY 139 BPM QUESTIONABLE CHANGE IN QRS DURATION Confirmed by MD Jaylin, Ari ([id number]) on 04/03/2019 1:49:27 PM Referred By: Confirmed By:Ari Mosqueda MD
[2019-04-03] MEDS ORDERED: VANCOMYCIN 1 GRAM (PRE-DOCKED) 1,000 MG/250 ML BAG IVPB ONE (13:52)
[2019-04-03] MEDS ORDERED: POTASSIUM CHLORIDE ORAL LIQUID 20 MEQ/15 ML ONE (13:53)
[2019-04-03] MEDS ORDERED: INSULIN (LEVEMIR) 100 UNITS/ML UNITS SQ ONE (14:41)
--- NOTE | 2019-04-03 14:59 | HP ---
CHIEF COMPLAINT: lightheadedness and fall PCP: Valerie Cards: Jose R HISTORY OF PRESENT ILLNESS: Mr. 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 Pt reports waking up at his normal time this morning and showered before getting ready for sabianism. He was walking down the hallway in his apartment when he felt lightheaded and fell. He reports hitting his head but denies loss of consciousness. He did not take medications or ate breakfast prior to event. He called his son after the event occurred. He lives alone and normally ambulates without assistance. He is currently on a cisplatin, gemcitabine, and steroid regimen at [facility] [place], receiving his last dose of the three meds on Thursday. He was found to have UTI with labwork and was started on Macrobid on Thursday as well. Last abx use was in September at the time of surgery. He denies fever, chills, chest pain, abdominal pain , nausea, vomiting, or dark stools. No recent URI symptoms. Per family, he has had normal appetite and has been slightly more thirsty following steroid administration. Afib was diagnosed following surgery in September and has been taking amiodarone and Eliquis since that time. Pt's son and [id number] present for interview. 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, chemo tx at [facility] [place] afib (on amiodarone and Eliquis) CAD (s/p CABG 1990s and stents x 3) HTN HLD NIDDM PAST SURGICAL HISTORY: urinary bladder removal, urostomy prostatectomy CABG coronary stents right hernia repair Social History: Smoking: former, quit 1959 Alcohol: denies Drugs: denies Lives in apartment alone Allergies Quinolones Allergy (Unknown, Verified 04/03/19 09:22) morphine Allergy (Verified 04/03/19 09:22) HOME MEDICATIONS: Home Medications Medication Instructions Recorded Amiodarone HCl 200 mg PO DAILY 04/03/19 Apixaban [Eliquis] 5 mg PO BID 04/03/19 Atorvastatin Ca [Lipitor] 40 mg PO HS 04/03/19 REVIEW OF SYSTEMS CONSTITUTIONAL: Absent: fever, chills, generalized weakness HEENT: Absent: rhinorrhea, nasal congestion, throat pain CARDIOVASCULAR: Present: lightheadedness Absent: chest pain, syncope, palpitations RESPIRATORY: Absent: cough GASTROINTESTINAL: Absent: abdominal pain, nausea, vomiting, diarrhea, hematochezia GENITOURINARY: Absent: hematuria, flank pain MUSCULOSKELETAL: Absent: back pain SKIN: Absent: rash ENDOCRINE: Absent: unexplained weight gain, unexplained weight loss, heat intolerance, cold intolerance NEUROLOGIC: Absent: headache, dizziness, unsteady gait, seizure PSYCHIATRIC: Absent: anxiety, depression PHYSICAL EXAMINATION Vital Signs - 24 hr 04/03/19 09:15 Temperature 97.9 F Pulse Rate 54 L Respiratory 16 Rate Blood Pressure 186/60 H O2 Sat by Pulse 98 Oximetry (%) GENERAL: Awake, alert, and fully oriented, in no acute distress. HEAD: No sign of trauma. EYES: Pupils equal, round and reactive to light, extraocular movements intact, conjunctiva clear. EARS, NOSE, THROAT: Ears normal, nares patent, oropharynx clear without exudates. Dry tongue. NECK: Normal range of motion LUNGS: Clear to auscultation bilaterally. No wheezes, and no crackles. HEART: Bradycardia, regular rhythm, 3/6 systolic murmur ABDOMEN: Soft, nontender, not distended, normoactive bowel sounds. Urostomy and pouch RLQ with yellowish/clear urine. MUSCULOSKELETAL: Normal range of motion at all joints. No CVA tenderness. UPPER EXTREMITIES: Warm, well-perfused. LOWER EXTREMITIES: Warm, well-perfused. No peripheral edema. NEUROLOGICAL: Cranial nerves II-XII intact. Normal speech. Gait not observed. PSYCHIATRIC: Cooperative. Good eye contact. Appropriate mood and affect. SKIN: Warm, dry, normal turgor, no rashes or lesions noted. Laboratory Results - last 24 hr 04/03/19 04/03/19 04/03/19 09:24 10:35 10:35 WBC RBC Hgb Hct MCV MCH MCHC RDW Plt Count MPV Absolute Neuts (auto) Neutrophils % Lymphocytes % Monocytes % Eosinophils % Basophils % Nucleated RBC % Platelet Estimate Anisocytosis Schistocytes PT with INR 12.50 INR 1.06 PTT (Actin FS) 29.8 VBG pH POC VBG pCO2 POC VBG pO2 VBG HCO3 VBG O2 Sat (Ankush) VBG Base Excess Sodium Potassium Chloride Carbon Dioxide Anion Gap BUN Creatinine Est GFR (CKD-EPI)AfAm Est GFR (CKD-EPI)NonAf POC Glucometer 382 Random Glucose Calcium Total Bilirubin AST ALT Alkaline Phosphatase Creatine Kinase Troponin I B-Natriuretic Peptide Total Protein Albumin Beta-Hydroxybutyrate 7.4 H Urine Color Urine Appearance Urine pH Ur Specific [place] Urine Protein Urine Glucose (UA) Urine Ketones Urine Blood Urine Nitrite Urine Bilirubin Urine Urobilinogen Ur Leukocyte Esterase Urine WBC (Auto) Urine RBC (Auto) Urine Casts (Auto) U Pathogenic Cast Auto U Epithel Cells (Auto) U Sm Round Cell (Auto) Urine Bacteria (Auto) 04/03/19 04/03/19 04/03/19 10:35 10:35 10:35 WBC 7.3 RBC 3.02 L Hgb 9.2 L Hct 27.0 L MCV 89.4 MCH 30.4 MCHC 33.9 RDW 22.0 H Plt Count 120 L D MPV 7.4 L Absolute Neuts (auto) 6.6 Neutrophils % 90.0 H Lymphocytes % 5.1 L D Monocytes % 4.5 Eosinophils % 0.2 D Basophils % 0.2 Nucleated RBC % 0 Platelet Estimate Decreased Anisocytosis 2+ Schistocytes 1+ PT with INR INR PTT (Actin FS) VBG pH 7.53 H POC VBG pCO2 31.2 L POC VBG pO2 117 H VBG HCO3 25.9 VBG O2 Sat (Ankush) 98.8 H VBG Base Excess 3.6 H Sodium 136 Potassium 3.1 L Chloride 97 L Carbon Dioxide 29 Anion Gap 9 BUN 30.0 H Creatinine 1.0 Est GFR (CKD-EPI)AfAm 81.45 Est GFR (CKD-EPI)NonAf 70.27 POC Glucometer Random Glucose 335 H Calcium 8.8 Total Bilirubin 1.3 H AST 29 ALT 47 Alkaline Phosphatase 68 Creatine Kinase 37 Troponin I 0.02 B-Natriuretic Peptide 1196.8 H Total Protein 6.6 Albumin 3.7 Beta-Hydroxybutyrate Urine Color Urine Appearance Urine pH Ur Specific [place] Urine Protein Urine Glucose (UA) Urine Ketones Urine Blood Urine Nitrite Urine Bilirubin Urine Urobilinogen Ur Leukocyte Esterase Urine WBC (Auto) Urine RBC (Auto) Urine Casts (Auto) U Pathogenic Cast Auto U Epithel Cells (Auto) U Sm Round Cell (Auto) Urine Bacteria (Auto) 04/03/19 10:40 WBC RBC Hgb Hct MCV MCH MCHC RDW Plt Count MPV Absolute Neuts (auto) Neutrophils % Lymphocytes % Monocytes % Eosinophils % Basophils % Nucleated RBC % Platelet Estimate Anisocytosis Schistocytes PT with INR INR PTT (Actin FS) VBG pH POC VBG pCO2 POC VBG pO2 VBG HCO3 VBG O2 Sat (Ankush) VBG Base Excess Sodium Potassium Chloride Carbon Dioxide Anion Gap BUN Creatinine Est GFR (CKD-EPI)AfAm Est GFR (CKD-EPI)NonAf POC Glucometer Random Glucose Calcium Total Bilirubin AST ALT Alkaline Phosphatase Creatine Kinase Troponin I B-Natriuretic Peptide Total Protein Albumin Beta-Hydroxybutyrate Urine Color Yellow Urine Appearance Turbid Urine pH 5.5 Ur Specific [place] 1.020 Urine Protein Trace Urine Glucose (UA) 1+ H Urine Ketones Trace H Urine Blood 1+ H Urine Nitrite Positive H Urine Bilirubin Negative Urine Urobilinogen 0.2 Ur Leukocyte Esterase 1+ H Urine WBC (Auto) 12 Urine RBC (Auto) 1 Urine Casts (Auto) 117 U Pathogenic Cast Auto Positive U Epithel Cells (Auto) 14.7 U Sm Round Cell (Auto) Negative Urine Bacteria (Auto) 965.8 ASSESSMENT/PLAN: Mr. 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 He denies loss of consciousness. EKG showed bradycardia. #lightheadedness, possibly symptomatic bradycardia -CXR repeat- initial could not r/o pneumothorax -CT head negative for acute processes, did show some acute chronic small vessel ischemia -telemetry -PT consulted -cards consulted (Dr. Odell) #complicated UTI hx of MRSA urine cx in May -continue ceftriaxone 1g daily -vancomycin x 1 dose -urine cx -blood cx #hypokalemia Given PO in ED -KCl 40meq PO this evening -repeat lab in the morning #paroxysmal afib -continue Eliquis 5mg BID, obtain weight tomorrow, if <60kg, consider reducing dose -continue amiodarone 200mg daily #NIDDM Pt recently received IV steroids -Levemir 5U now, then HS starting tomorrow -BGMs -SSI -holding home metformin, explained to family the importance of using insulin as in pt #HTN -monitor pressure -reconcile home meds #HLD -home atorvastatin DVT Ppx home Eliquis FEN PO fluids monitor K diabetic/low sodium diet dispo tele/obs reconcile medications Visit type - Emergency Visit Emergency Visit: Yes ED Registration Date: 04/03/19 Care time: The patient presented to the Emergency Department on the above date and was hospitalized for further evaluation of their emergent condition. - New Patient This patient is new to me today: Yes Date on this admission: 04/03/19 - Critical Care Critical Care patient: No ATTENDING PHYSICIAN STATEMENT I saw and evaluated the patient. I reviewed the resident's note and discussed the case with the resident. I agree with the resident's findings and plan as documented. SUBJECTIVE: OBJECTIVE: ASSESSMENT AND PLAN:
[2019-04-03 15:59] LABS: MAGNESIUM 1.6 mg/dL (1.8-2.4)
--- NOTE | 2019-04-03 16:09 | PN ---
Teaching Attending Note Name of Resident: Dasia Cope ATTENDING PHYSICIAN STATEMENT I saw and evaluated the patient. I reviewed the resident's note and discussed the case with the resident. I agree with the resident's findings and plan as documented. SUBJECTIVE: Symptoms resolved, no further lightheadedness. No headache/visual disturbance/focal limb numbness, tingling, weakness. OBJECTIVE: Afebrile, Hemodynamically Stable. Last Vital Signs Temp Pulse Resp BP Pulse Ox 97.9 F 54 L 16 186/60 H 98 04/03/19 09:15 04/03/19 09:15 04/03/19 09:15 04/03/19 09:15 04/03/19 09:15 HEENT- Atraumatic, Normocephalic. Heart - S1, S2, Bobby Lungs - clear to auscultation Abdomen - Soft, non-tender, Urostomy with clear urine on RLQ. Bowel Sounds normal. Extremities - no edema , no calf tenderness Laboratory Results - last 24 hr 04/03/19 04/03/19 04/03/19 09:24 10:35 10:35 WBC RBC Hgb Hct MCV MCH MCHC RDW Plt Count MPV Absolute Neuts (auto) Neutrophils % Lymphocytes % Monocytes % Eosinophils % Basophils % Nucleated RBC % Platelet Estimate Anisocytosis Schistocytes PT with INR 12.50 INR 1.06 PTT (Actin FS) 29.8 VBG pH POC VBG pCO2 POC VBG pO2 VBG HCO3 VBG O2 Sat (Ankush) VBG Base Excess Sodium Potassium Chloride Carbon Dioxide Anion Gap BUN Creatinine Est GFR (CKD-EPI)AfAm Est GFR (CKD-EPI)NonAf POC Glucometer 382 Random Glucose Calcium Total Bilirubin AST ALT Alkaline Phosphatase Creatine Kinase Troponin I B-Natriuretic Peptide Total Protein Albumin Beta-Hydroxybutyrate 7.4 H Urine Color Urine Appearance Urine pH Ur Specific [place] Urine Protein Urine Glucose (UA) Urine Ketones Urine Blood Urine Nitrite Urine Bilirubin Urine Urobilinogen Ur Leukocyte Esterase Urine WBC (Auto) Urine RBC (Auto) Urine Casts (Auto) U Pathogenic Cast Auto U Epithel Cells (Auto) U Sm Round Cell (Auto) Urine Bacteria (Auto) 04/03/19 04/03/19 04/03/19 10:35 10:35 10:35 WBC 7.3 RBC 3.02 L Hgb 9.2 L Hct 27.0 L MCV 89.4 MCH 30.4 MCHC 33.9 RDW 22.0 H Plt Count 120 L D MPV 7.4 L Absolute Neuts (auto) 6.6 Neutrophils % 90.0 H Lymphocytes % 5.1 L D Monocytes % 4.5 Eosinophils % 0.2 D Basophils % 0.2 Nucleated RBC % 0 Platelet Estimate Decreased Anisocytosis 2+ Schistocytes 1+ PT with INR INR PTT (Actin FS) VBG pH 7.53 H POC VBG pCO2 31.2 L POC VBG pO2 117 H VBG HCO3 25.9 VBG O2 Sat (Ankush) 98.8 H VBG Base Excess 3.6 H Sodium 136 Potassium 3.1 L Chloride 97 L Carbon Dioxide 29 Anion Gap 9 BUN 30.0 H Creatinine 1.0 Est GFR (CKD-EPI)AfAm 81.45 Est GFR (CKD-EPI)NonAf 70.27 POC Glucometer Random Glucose 335 H Calcium 8.8 Total Bilirubin 1.3 H AST 29 ALT 47 Alkaline Phosphatase 68 Creatine Kinase 37 Troponin I 0.02 B-Natriuretic Peptide 1196.8 H Total Protein 6.6 Albumin 3.7 Beta-Hydroxybutyrate Urine Color Urine Appearance Urine pH Ur Specific [place] Urine Protein Urine Glucose (UA) Urine Ketones Urine Blood Urine Nitrite Urine Bilirubin Urine Urobilinogen Ur Leukocyte Esterase Urine WBC (Auto) Urine RBC (Auto) Urine Casts (Auto) U Pathogenic Cast Auto U Epithel Cells (Auto) U Sm Round Cell (Auto) Urine Bacteria (Auto) 04/03/19 10:40 WBC RBC Hgb Hct MCV MCH MCHC RDW Plt Count MPV Absolute Neuts (auto) Neutrophils % Lymphocytes % Monocytes % Eosinophils % Basophils % Nucleated RBC % Platelet Estimate Anisocytosis Schistocytes PT with INR INR PTT (Actin FS) VBG pH POC VBG pCO2 POC VBG pO2 VBG HCO3 VBG O2 Sat (Ankush) VBG Base Excess Sodium Potassium Chloride Carbon Dioxide Anion Gap BUN Creatinine Est GFR (CKD-EPI)AfAm Est GFR (CKD-EPI)NonAf POC Glucometer Random Glucose Calcium Total Bilirubin AST ALT Alkaline Phosphatase Creatine Kinase Troponin I B-Natriuretic Peptide Total Protein Albumin Beta-Hydroxybutyrate Urine Color Yellow Urine Appearance Turbid Urine pH 5.5 Ur Specific [place] 1.020 Urine Protein Trace Urine Glucose (UA) 1+ H Urine Ketones Trace H Urine Blood 1+ H Urine Nitrite Positive H Urine Bilirubin Negative Urine Urobilinogen 0.2 Ur Leukocyte Esterase 1+ H Urine WBC (Auto) 12 Urine RBC (Auto) 1 Urine Casts (Auto) 117 U Pathogenic Cast Auto Positive U Epithel Cells (Auto) 14.7 U Sm Round Cell (Auto) Negative Urine Bacteria (Auto) 965.8 Current Medications Generic Name Dose Route Start Last Admin Trade Name Freq PRN Reason Stop Dose Admin Insulin Aspart 1 vial 04/03/19 16:30 Novolog Vial Sliding Scale - SQ ACHS VALENTE Protocol Insulin Detemir 5 units 04/04/19 22:00 Levemir Vial SQ HS [facility] Potassium Chloride 40 meq 04/03/19 20:00 K-Dur - PO 04/03/19 20:01 ONCE ONE Home Medications Medication Instructions Recorded Amiodarone HCl 200 mg PO DAILY 04/03/19 Apixaban [Eliquis] 5 mg PO BID 04/03/19 Atorvastatin Ca [Lipitor] 40 mg PO HS 04/03/19 Dexamethasone 4 mg DAILY 04/03/19 Lisinopril [Prinivil -] 40 mg PO 04/03/19 Losartan/Hydrochlorothiazide 1 each PO 04/03/19 [Losartan-Hctz 100-25 mg Tab] Metformin HCl [Glucophage] 1,000 mg PO 04/03/19 Metoprolol Succinate [Toprol Xl] 100 mg PO 04/03/19 Ondansetron HCl 8 mg PO PRN 04/03/19 ASSESSMENT AND PLAN: 83 year old male with HTN, HLD, DM 2, CAD s/p CABG s/p PCI/Stent, Paroxysmal Atrial Fibrillation (on Eliquis), Bladder Ca Stage 4 on chemotherapy at [facility] [place] s/p bladder/prostate removal with ileostomy, presents with an episode of lightheadedness resulting in fall with head injury. 1. Lightheadedness, possible Symptomatic Bradycardia HR mid-40s on tele. Metoprolol held pending Cardio eval - follows with Dr. Vela Telemonitoring PT 2. HTN - Continue ACEI/ARB (needs med rec ?on both CAROLINE and ARB/HCTZ?). Hold Metoprolol pending Cardio eval for possible symptomatic bradycardia. 3. HLD - continue Lipitor. 4. Paroxysmal Atrial Fibrilllation - Continue Amiodarone, Eliquis, ?Metoprolol ( may need a dose reduction). TSH requested. 5. CAD s/p CABG - Continue CAROLINE/ARB, Statin. 6. DM 2 - cover with Levemir and Novolog sliding scale. 7. Hypokalemia - repleted. 8. Possible UTI - UA LE/Nitrites pos, Urine Cx pending. Given Hx of MRSA UTIs, covered empirically with Ceftriaxone and 1 dose Vancomycin pending Urine cx. DVT Px - Heparin SQ
[2019-04-03] MEDS ORDERED: AMIODARONE HCL 200 MG TABLET (FP) PO SCH (16:15)
[2019-04-03] MEDS ORDERED: INSULIN SLIDING SCALE (NOVOLOG) 1 VIAL SQ SCH (16:30)
[2019-04-03 20:44] VITALS: BP 137/59; PULSE 68
[2019-04-03] MEDS ORDERED: APIXABAN 5 MG TABLET PO SCH (22:00)
[2019-04-03] MEDS ORDERED: ATORVASTATIN CA 40 MG TABLET (FP) PO SCH (22:00)
[2019-04-04] MEDS ORDERED: CEFTRIAXONE 1 GM in DEXTROSE 5%-WATER - 50 ML IVPB SCH (10:00)
--- NOTE | 2019-04-04 12:57 | DS ---
Physical Exam: SUBJECTIVE: When seen earlier in the day on 04/03, his symptoms had resolved, with no further lightheadedness. No headache/visual disturbance/focal limb numbness, tingling, weakness. OBJECTIVE: Afebrile, Hemodynamically Stable on PE 04/03. Last sen by me on 04/03 Last Vital Signs Temp Pulse Resp BP Pulse Ox 97.9 F 68 18 137/59 L 100 04/03/19 09:15 04/03/19 20:43 04/03/19 20:43 04/03/19 20:43 04/03/19 20:43 HEENT- Atraumatic, Normocephalic. Heart - S1, S2, Bobby Lungs - clear to auscultation Abdomen - Soft, non-tender, Urostomy with clear urine on RLQ. Bowel Sounds normal. Extremities - no edema , no calf tenderness Laboratory Results - last 24 hr 04/03/19 04/03/19 04/03/19 09:24 10:35 10:35 WBC RBC Hgb Hct MCV MCH MCHC RDW Plt Count MPV Absolute Neuts (auto) Neutrophils % Lymphocytes % Monocytes % Eosinophils % Basophils % Nucleated RBC % Platelet Estimate Anisocytosis Schistocytes PT with INR 12.50 INR 1.06 PTT (Actin FS) 29.8 VBG pH POC VBG pCO2 POC VBG pO2 VBG HCO3 VBG O2 Sat (Ankush) VBG Base Excess Sodium Potassium Chloride Carbon Dioxide Anion Gap BUN Creatinine Est GFR (CKD-EPI)AfAm Est GFR (CKD-EPI)NonAf POC Glucometer 382 Random Glucose Calcium Total Bilirubin AST ALT Alkaline Phosphatase Creatine Kinase Troponin I B-Natriuretic Peptide Total Protein Albumin Beta-Hydroxybutyrate 7.4 H Urine Color Urine Appearance Urine pH Ur Specific [place] Urine Protein Urine Glucose (UA) Urine Ketones Urine Blood Urine Nitrite Urine Bilirubin Urine Urobilinogen Ur Leukocyte Esterase Urine WBC (Auto) Urine RBC (Auto) Urine Casts (Auto) U Pathogenic Cast Auto U Epithel Cells (Auto) U Sm Round Cell (Auto) Urine Bacteria (Auto) 04/03/19 04/03/19 04/03/19 10:35 10:35 10:35 WBC 7.3 RBC 3.02 L Hgb 9.2 L Hct 27.0 L MCV 89.4 MCH 30.4 MCHC 33.9 RDW 22.0 H Plt Count 120 L D MPV 7.4 L Absolute Neuts (auto) 6.6 Neutrophils % 90.0 H Lymphocytes % 5.1 L D Monocytes % 4.5 Eosinophils % 0.2 D Basophils % 0.2 Nucleated RBC % 0 Platelet Estimate Decreased Anisocytosis 2+ Schistocytes 1+ PT with INR INR PTT (Actin FS) VBG pH 7.53 H POC VBG pCO2 31.2 L POC VBG pO2 117 H VBG HCO3 25.9 VBG O2 Sat (Ankush) 98.8 H VBG Base Excess 3.6 H Sodium 136 Potassium 3.1 L Chloride 97 L Carbon Dioxide 29 Anion Gap 9 BUN 30.0 H Creatinine 1.0 Est GFR (CKD-EPI)AfAm 81.45 Est GFR (CKD-EPI)NonAf 70.27 POC Glucometer Random Glucose 335 H Calcium 8.8 Total Bilirubin 1.3 H AST 29 ALT 47 Alkaline Phosphatase 68 Creatine Kinase 37 Troponin I 0.02 B-Natriuretic Peptide 1196.8 H Total Protein 6.6 Albumin 3.7 Beta-Hydroxybutyrate Urine Color Urine Appearance Urine pH Ur Specific [place] Urine Protein Urine Glucose (UA) Urine Ketones Urine Blood Urine Nitrite Urine Bilirubin Urine Urobilinogen Ur Leukocyte Esterase Urine WBC (Auto) Urine RBC (Auto) Urine Casts (Auto) U Pathogenic Cast Auto U Epithel Cells (Auto) U Sm Round Cell (Auto) Urine Bacteria (Auto) 04/03/19 10:40 WBC RBC Hgb Hct MCV MCH MCHC RDW Plt Count MPV Absolute Neuts (auto) Neutrophils % Lymphocytes % Monocytes % Eosinophils % Basophils % Nucleated RBC % Platelet Estimate Anisocytosis Schistocytes PT with INR INR PTT (Actin FS) VBG pH POC VBG pCO2 POC VBG pO2 VBG HCO3 VBG O2 Sat (Ankush) VBG Base Excess Sodium Potassium Chloride Carbon Dioxide Anion Gap BUN Creatinine Est GFR (CKD-EPI)AfAm Est GFR (CKD-EPI)NonAf POC Glucometer Random Glucose Calcium Total Bilirubin AST ALT Alkaline Phosphatase Creatine Kinase Troponin I B-Natriuretic Peptide Total Protein Albumin Beta-Hydroxybutyrate Urine Color Yellow Urine Appearance Turbid Urine pH 5.5 Ur Specific [place] 1.020 Urine Protein Trace Urine Glucose (UA) 1+ H Urine Ketones Trace H Urine Blood 1+ H Urine Nitrite Positive H Urine Bilirubin Negative Urine Urobilinogen 0.2 Ur Leukocyte Esterase 1+ H Urine WBC (Auto) 12 Urine RBC (Auto) 1 Urine Casts (Auto) 117 U Pathogenic Cast Auto Positive U Epithel Cells (Auto) 14.7 U Sm Round Cell (Auto) Negative Urine Bacteria (Auto) 965.8 Current Medications Generic Name Dose Route Start Last Admin Trade Name Freq PRN Reason Stop Dose Admin Insulin Aspart 1 vial 04/03/19 16:30 Novolog Vial Sliding Scale - SQ ACHS VALENTE Protocol Insulin Detemir 5 units 04/04/19 22:00 Levemir Vial SQ HS [facility] Potassium Chloride 40 meq 04/03/19 20:00 K-Dur - PO 04/03/19 20:01 ONCE ONE Home Medications Medication Instructions Recorded Amiodarone HCl 200 mg PO DAILY 04/03/19 Apixaban [Eliquis] 5 mg PO BID 04/03/19 Atorvastatin Ca [Lipitor] 40 mg PO HS 04/03/19 Dexamethasone 4 mg DAILY 04/03/19 Lisinopril [Prinivil -] 40 mg PO 04/03/19 Losartan/Hydrochlorothiazide 1 each PO 04/03/19 [Losartan-Hctz 100-25 mg Tab] Metformin HCl [Glucophage] 1,000 mg PO 04/03/19 Metoprolol Succinate [Toprol Xl] 100 mg PO 04/03/19 Ondansetron HCl 8 mg PO PRN 04/03/19 Date of Admission:04/03/19 Left AMA: 04/04/19 Minutes to complete discharge: 35 Discharge Summary Problems reviewed: Yes Reason For Visit: SYNCOPE Current Active Problems Syncope (Acute) UTI (urinary tract infection) (Acute) Weakness (Acute) Hospital Course: 83 year old male with HTN, HLD, DM 2, CAD s/p CABG s/p PCI/Stent, Paroxysmal Atrial Fibrillation (on Eliquis), Bladder Ca Stage 4 on chemotherapy at [facility] s/p bladder/prostate removal with ileostomy, presented with an episode of lightheadedness resulting in fall with head injury. 1. Lightheadedness, possible Symptomatic Bradycardia HR mid-40s on tele. Metoprolol held pending Cardio eval - follows with Dr. Vela Telemonitoring PT Patient left AMA prior to cardiology evaluation. 2. HTN - reportedly on ACEI/ARB (needs med rec ?on both CAROLINE and ARB/HCTZ?). Metoprolol held pending Cardio eval for possible symptomatic bradycardia. 3. HLD - continue Lipitor. 4. Paroxysmal Atrial Fibrilllation - Continue Amiodarone, Eliquis, ?Metoprolol ( may need a dose reduction). 5. CAD s/p CABG - Continue CAROLINE/ARB, Statin. 6. DM 2 - resume home diabetic regimen on discharge. 7. Hypokalemia - repleted. 8. UTI - UA LE/Nitrites pos, Urine Cx pending. Given Hx of MRSA UTIs, covered empirically iniitally with Ceftriaxone and 1 dose Vancomycin pending Urine cx. Prelim Urine Cx - LFNB. Patient was given 1 week course of Nitrofurantoin on leaving AMA. Will await final ID and Sens to ensure sensitivity to Nitrofurantoin. Condition: Fair - Instructions Referrals: Claudy Padilla MD [Primary Care Provider] - Disposition: AGAINST MEDICAL ADVICE - Home Medications Comprehensive Discharge Medication List: Ambulatory Orders Amiodarone HCl 200 mg PO DAILY 04/03/19 Apixaban [Eliquis] 5 mg PO BID 04/03/19 Atorvastatin Ca [Lipitor] 40 mg PO HS 04/03/19 Nitrofurantoin Monohyd/M-Cryst [Macrobid -] 100 mg PO BID #14 capsule 04/03/19 This patient is new to me today: No Emergency Visit: Yes ED Registration Date: 04/03/19 Care time: The patient presented to the Emergency Department on the above date and was hospitalized for further evaluation of their emergent condition. Critical Care patient: No - Discharge Referral Referred to [facility] Med P.C.: No
[2019-04-04] MEDS ORDERED: INSULIN (LEVEMIR) 100 UNITS/ML UNITS SQ SCH (22:00)
== END 2019-04-03 21:24 | disposition left against medical advice (07) ==
LOC: JER 09:13 → JERBED 13:06 → INTOOBSV 13:06
PROVIDERS: ADMIT Internal Medicine
PROC: 3E03329 Introduction of Other Anti-infective into Peripheral Vein, Percutaneous Approach (ICD-10-PCS; principal; 2019-04-03)
PROC: 3E0337Z Introduction of Electrolytic and Water Balance Substance into Peripheral Vein, Percutaneous Approach (ICD-10-PCS; 2019-04-03)
PROC: 3E013VG Introduction of Insulin into Subcutaneous Tissue, Percutaneous Approach (ICD-10-PCS; 2019-04-03)
DX: R55 Syncope and collapse (principal); N39.0 Urinary tract infection, site not specified; R53.1 Weakness; D72.819 Decreased white blood cell count, unspecified; I10 Essential (primary) hypertension; E87.6 Hypokalemia; E78.5 Hyperlipidemia, unspecified; E11.9 Type 2 diabetes mellitus without complications; I25.10 Atherosclerotic heart disease of native coronary artery without angina pectoris; I35.0 Nonrheumatic aortic (valve) stenosis; C67.9 Malignant neoplasm of bladder, unspecified; D64.9 Anemia, unspecified; Z87.891 Personal history of nicotine dependence; Z87.442 Personal history of urinary calculi; Z79.4 Long term (current) use of insulin; Z29.8 Encounter for other specified prophylactic measures; Z88.6 Allergy status to analgesic agent; Z88.8 Allergy status to other drugs, medicaments and biological substances; Z95.1 Presence of aortocoronary bypass graft; Z95.5 Presence of coronary angioplasty implant and graft; Z79.01 Long term (current) use of anticoagulants; Z92.21 Personal history of antineoplastic chemotherapy; Z79.82 Long term (current) use of aspirin
CPT/HCPCS: 36415; 70450-TC; 71045-TC-FY; 71046-TC-FY; 80053; 81003; 82010; 82550; 82803; 82962; 83735; 83880; 84443; 84484; 85025; 85610; 85730; 87040; 87086; 87186; 93005; 93010; 96361; 96365; 96367; 96372; 99284-25; G0378; J7030

== ENCOUNTER 2019-06-26 05:31 | Emergency (ER) | payer BC ==
[2019-06-26 05:33] VITALS: BMI 19.2
--- NOTE | 2019-06-26 05:38 | PDOC ---
History of Present Illness - General Chief Complaint: Injury Stated Complaint: FALL History Source: Patient, Family (son), Old Records Exam Limitations: No Limitations - History of Present Illness Initial Comments: 06/26/19 05:37 84y M with PMH of HTN, HLD, NIDDM, CAD (s/p cardiac stent placement x 3, CABG, Afib (on Amiodarone and Eliquis), Stage III Bladder CA (on Carboplatin and Gemcitabine at [facility] [place] [place], s/p bladder and prostate removal with urostomy) presenting to ED s/p fall 12h ago. Pt states he was walking outside and tripped, injuring his hand, face and L knee. Pt states he was able to walk back into the house. At 3am pt states he was having more pain in his chest wall and L knee, so he called his son. He denies LOC, headache, eye pain, neck pain, back pain, abdominal pain, n/v/d, SOB, numbness/tingling. PMD: Rosch PMH: see hpi PSH: see hpi Meds: see med rec Allergies: morphine (nausea, vomiting), FQs, general anesthetics Past History - Past Medical History Allergies/Adverse Reactions: Allergies Allergy/AdvReac Type Severity Reaction Status Date / Time Quinolones Allergy Unknown Verified 06/26/19 05:33 morphine Allergy Verified 06/26/19 05:33 Home Medications: Ambulatory Orders Amiodarone HCl 200 mg PO DAILY 04/03/19 Apixaban [Eliquis] 5 mg PO BID 04/03/19 Atorvastatin Ca [Lipitor] 40 mg PO HS 04/03/19 Nitrofurantoin Monohyd/M-Cryst [Macrobid -] 100 mg PO BID #14 capsule 04/03/19 Anemia: Yes Asthma: No Cancer: Yes (PROSTATE CA) Cardiac Disorders: (CAD,ANGINA,AORTIC STENOSIS) CVA: No COPD: No CHF: No Dementia: No Diabetes: Yes (NIDDM) GI Disorders: No Disorders: Yes (kidney stones) HTN: Yes Hypercholesterolemia: Yes Liver Disease: No Seizures: No Thyroid Disease: No - Surgical History Abdominal Surgery: Yes (RIGHT HERNIA REPAIR 2012) Appendectomy: Yes (1957) Cardiac Surgery: Yes (DOULBE BYPASS AND STENTSW, cow valve replacement) Cholecystectomy: No Lung Surgery: No Neurologic Surgery: No Orthopedic Surgery: No - Psycho Social/Smoking Cessation Hx Smoking Status: Yes Smoking History: Never smoked Years of Tobacco Use: 30 Have you smoked in the past 12 months: No Number of Cigarettes Smoked Daily: 0 If you are a former smoker, when did you quit?: 1960 Cigars Per Day: 5 'Breaking Loose' booklet given: 09/03/11 Hx Alcohol Use: No Drug/Substance Use Hx: No Substance Use Type: Alcohol Hx Substance Use Treatment: No Review of Systems - Review of Systems Constitutional: No: Symptoms Reported HEENTM: Yes: See HPI Respiratory: No: Symptoms reported Cardiac (ROS): Yes: See HPI. No: Syncope ABD/GI: No: Symptoms Reported : No: Symptoms Reported Musculoskeletal: Yes: See HPI Integumentary: Yes: See HPI Neurological: No: Headache, Numbness, Tingling, Weakness, Ataxia, Dizziness *Physical Exam - Vital Signs Last Vital Signs Temp Pulse Resp BP Pulse Ox 98.4 F 70 18 164/59 L 100 06/26/19 05:31 06/26/19 05:31 06/26/19 05:31 06/26/19 05:31 06/26/19 05:31 - Physical Exam General Appearance: Yes: Appropriately Dressed, Thin. No: Apparent Distress HEENT: positive: EOMI, VIKTORIYA, Pharynx Normal, Other (periorbital bruising over R eye. orbit intact, not protruding. ) Neck: positive: Trachea midline, Supple. negative: Tender, Tender midline Respiratory/Chest: positive: Chest Tender, Lungs Clear, Normal Breath Sounds. negative: Rapid RR, Crackles, Rhonchi, Stridor, Wheezing, Plerual Rub Cardiovascular: positive: Regular Rhythm, Regular Rate, S1, S2. negative: Edema , JVD, Murmur Gastrointestinal/Abdominal: positive: Normal Bowel Sounds, Soft. negative: Tender Musculoskeletal: negative: CVA Tenderness, CVA Tenderness (L), Vertebral Tenderness Extremity: positive: Pelvis Stable, Other (L knee swelling,). negative: Tender , Calf Tenderness, Erythema Integumentary: positive: Normal Color, Dry, Warm Neurologic: positive: brisket puller II-XII NML intact, Fully Oriented, Alert, Normal Mood/ Affect, Normal Response, Motor Strength 09/12 ED Treatment Course - LABORATORY CBC & Chemistry Diagram: 06/26/19 06:20 06/26/19 06:20 Medical Decision Making - Medical Decision Making 06/26/19 07:24 84y M on apixaban presenting to ED for fall. has periorbital bruising and swelling. L knee swelling. suspect hematoma. chest wall tenderness. will obtain ts, coags, cbc, cmp, trop, ekg -ct head, face and orbits, ct lower extremity, cspine. CT chest AP with iv contrast -ofirmev signed out to day team pending labs and imaging. Discharge - Discharge Information Problems reviewed: Yes Clinical Impression/Diagnosis: Fall Qualifiers: Encounter type: initial encounter Qualified Code(s): W19.XXXA - Unspecified fall, initial encounter Knee pain, left Qualifiers: Chronicity: acute Qualified Code(s): M25.562 - Pain in left knee Condition: Stable - Follow up/Referral Referrals: Claudy Padilla MD [Primary Care Provider] - - Patient Discharge Instructions - Post Discharge Activity
--- NOTE | 2019-06-26 05:49 | PDOC ---
Attending Attestation - Resident Resident Name: Stacey Us - ED Attending Attestation I have performed the following: I have examined & evaluated the patient, The case was reviewed & discussed with the resident, I agree w/resident's findings & plan - HPI HPI: 06/26/19 07:10 Pt fell and he has a black eye and he is on eliquis - Physicial Exam PE: 06/26/19 07:14 Face right eye hematoma No stepoffs. No c spine tenderness Heart [id number] Lungs CTA B Abd soft NT ND no flank pain Left knee pain swelling heat - Medical Decision Making 06/26/19 07:16 Pt will get scans and XR and he will be admitted
[2019-06-26] MEDS ORDERED: ACETAMINOPHEN 1000 MG/100 ML VIAL (NON FORMULARY) IVPB ONE (05:53)
[2019-06-26] MEDS ORDERED: DIPHTH,PERTUSS(ACELL),TET 0.5 ML DISP.SYRIN IM ONE ×2 (06:24→06:27)
[2019-06-26] MEDS ORDERED: ACETAMINOPHEN INJECTION 100 ML IVPB ONE (06:27)
[2019-06-26 06:36] LABS: BASO % 0.3 % (0-2.0); EOS % 0.5 % (0-4.5); HEMATOCRIT 25.6 % (35.4-49); HEMOGLOBIN 8.5 GM/dL (11.7-16.9); LYMPH % 5.9 % (8-40); MCH 30.4 pg (25.7-33.7); MCHC 33.3 g/dl (32.0-35.9); MEAN CELL VOLUME 91.2 fl (80-96); MEAN PLT VOLUME 7.5 fl (7.5-11.1); MONO % 10.5 % (3.8-10.2); NEUT % 82.8 % (42.8-82.8); PLATELET COUNT 217 K/MM3 (134-434); RBC 2.81 M/mm3 (4.00-5.60); RDW 16.6 % (11.9-15.9); WHITE BLOOD COUNT 14.5 K/mm3 (4.0-10.0)
[2019-06-26 06:49] LABS: INR 1.32 (0.83-1.09); PROTHROMBIN TIME (PATIENT) 15.6 SEC (9.7-13.0)
[2019-06-26 07:00] LABS: ALBUMIN 3.2 g/dl (3.4-5.0); BILIRUBIN,TOTAL 0.6 mg/dL (0.2-1); BLOOD UREA NITROGEN 31.9 mg/dL (7-18); CALCIUM 9.1 mg/dL (8.5-10.1); CREATININE 1.1 mg/dL (0.55-1.3); POTASSIUM 3.4 mmol/L (3.5-5.1); TOT PROT 6.9 g/dl (6.4-8.2)
[2019-06-26] MEDS ORDERED: MAGNESIUM SULF 50% (8.12 MEQ/2 ML-1 GM VIAL) IVPB ONE (07:06)
[2019-06-26] MEDS ORDERED: POTASSIUM CHLORIDE TABS 20 MEQ TABLET.ER (FP) PO ONE ×2 (07:06→07:22)
[2019-06-26] MEDS ORDERED: MAGNESIUM 1GM/D5W - 1 GM/100 ML IVPB IVPB ONE (07:23)
[2019-06-26] MEDS ORDERED: MAGNESIUM SULF 50% (8.12 MEQ/2 ML-1 GM VIAL) ONE ×2 (07:23→07:24)
--- NOTE | 2019-06-26 07:25 | PDOC ---
*Physical Exam - Vital Signs Last Vital Signs Temp Pulse Resp BP Pulse Ox 98.4 F 70 18 164/59 L 100 06/26/19 05:31 06/26/19 05:31 06/26/19 05:31 06/26/19 05:31 06/26/19 05:31 ED Treatment Course - LABORATORY CBC & Chemistry Diagram: 06/26/19 06:20 06/26/19 06:20 - ADDITIONAL ORDERS Additional order review: Laboratory Results 06/26/19 06/26/19 06/26/19 06:20 06:20 06:20 PT with INR 15.60 H INR 1.32 H PTT (Actin FS) 34.5 Sodium 137 Potassium 3.4 L Chloride 102 Carbon Dioxide 28 Anion Gap 7 L BUN 31.9 H Creatinine 1.1 Est GFR (CKD-EPI)AfAm 72.07 Est GFR (CKD-EPI)NonAf 62.19 Random Glucose 312 H Calcium 9.1 Total Bilirubin 0.6 AST 17 ALT 23 Alkaline Phosphatase 65 Troponin I Total Protein 6.9 Albumin 3.2 L 06/26/19 06:20 PT with INR INR PTT (Actin FS) Sodium Potassium Chloride Carbon Dioxide Anion Gap BUN Creatinine Est GFR (CKD-EPI)AfAm Est GFR (CKD-EPI)NonAf Random Glucose Calcium Total Bilirubin AST ALT Alkaline Phosphatase Troponin I 0.04 Total Protein Albumin 06/26/19 06:20 RBC 2.81 L MCV 91.2 MCHC 33.3 RDW 16.6 H MPV 7.5 Neutrophils % 82.8 Lymphocytes % 5.9 L Monocytes % 10.5 H D Eosinophils % 0.5 D Basophils % 0.3 - Medications Given in the ED: ED Medications Discontinued Medications Generic Name Dose Route Start Last Admin Trade Name Freq PRN Reason Stop Dose Admin Acetaminophen 1,000 mg 06/26/19 05:53 06/26/19 06:34 Ofirmev Injection - IVPB 06/26/19 05:54 1,000 mg ONCE ONE Administration Diphtheria/Tetanus/Acell Pertussis 0.5 ml 06/26/19 06:24 06/26/19 06:33 Boostrix - IM 06/26/19 06:25 0.5 ml .ONCE ONE Administration Medical Decision Making - Medical Decision Making 06/26/19 07:[address] Boogie (Attending) and Dr. Us (PGY-2) @ [id number] y/o male with a PMHx of -- (on A/C) s/p fall States he was leaving dinner last night when he slipped on the sidewalk and fell forward hitting his head, no LOC. Patient is now complaining of L knee pain. PE significant for R eye ecchymosis, L patellar edema, limited ROM Will Discharge - Follow up/Referral Referrals: Claudy Padilla MD [Primary Care Provider] - - Patient Discharge Instructions - Post Discharge Activity
--- NOTE | 2019-06-26 07:36 | PDOC ---
*Physical Exam - Vital Signs Last Vital Signs Temp Pulse Resp BP Pulse Ox 98.4 F 70 18 164/59 L 100 06/26/19 05:31 06/26/19 05:31 06/26/19 05:31 06/26/19 05:31 06/26/19 05:31 - Physical Exam 06/26/19 07:32 awake alert right eye periorbital eccymosis. EOMI, . no cspine tenderness. lungs clear mild righ lateral chest wall tendeness. no crepius no step off. heart rrr on mrg abd soft nt nd ex wwp. left kne large eccymosis. ttp. decreased rom secondary to pain. ankle / hip left nt from. pelvis stable. abd with urostomy bag, clear urine. nontender. no cva tenderness. GCS 15 ED Treatment Course - LABORATORY CBC & Chemistry Diagram: 06/26/19 06:20 06/26/19 06:20 - ADDITIONAL ORDERS Additional order review: Laboratory Results 06/26/19 06/26/19 06/26/19 06:20 06:20 06:20 PT with INR 15.60 H INR 1.32 H PTT (Actin FS) 34.5 Sodium 137 Potassium 3.4 L Chloride 102 Carbon Dioxide 28 Anion Gap 7 L BUN 31.9 H Creatinine 1.1 Est GFR (CKD-EPI)AfAm 72.07 Est GFR (CKD-EPI)NonAf 62.19 Random Glucose 312 H Calcium 9.1 Total Bilirubin 0.6 AST 17 ALT 23 Alkaline Phosphatase 65 Troponin I Total Protein 6.9 Albumin 3.2 L 06/26/19 06:20 PT with INR INR PTT (Actin FS) Sodium Potassium Chloride Carbon Dioxide Anion Gap BUN Creatinine Est GFR (CKD-EPI)AfAm Est GFR (CKD-EPI)NonAf Random Glucose Calcium Total Bilirubin AST ALT Alkaline Phosphatase Troponin I 0.04 Total Protein Albumin 06/26/19 06:20 RBC 2.81 L MCV 91.2 MCHC 33.3 RDW 16.6 H MPV 7.5 Neutrophils % 82.8 Lymphocytes % 5.9 L Monocytes % 10.5 H D Eosinophils % 0.5 D Basophils % 0.3 - RADIOLOGY Radiology Studies Ordered: Category Date Time Status KNEE 3 POS-LEFT [RAD] Stat Radiology 06/26/19 07:15 Ordered - Medications Given in the ED: ED Medications Discontinued Medications Generic Name Dose Route Start Last Admin Trade Name Freq PRN Reason Stop Dose Admin Acetaminophen 1,000 mg 06/26/19 05:53 06/26/19 06:34 Ofirmev Injection - IVPB 06/26/19 05:54 1,000 mg ONCE ONE Administration Diphtheria/Tetanus/Acell Pertussis 0.5 ml 06/26/19 06:24 06/26/19 06:33 Boostrix - IM 06/26/19 06:25 0.5 ml .ONCE ONE Administration Medical Decision Making - Medical Decision Making 06/26/19 07:34 84 yo M with h/o cabg htn hld on [employer] s/p trip and fall on sidewalk yesterday , signed out to me by overnight team. pt awaiting ct head facil bones neck c/a/ p and xray left knee. labs noted mild worsening anemia, (slow decline over last year), 06/26/19 08:53 pt with small intracranial bleed. noted to have foul smelling urine. ua sent positive for uti. will add ceftriaxone. dr kelsie foster paged awaiting call back. Discharge - Discharge Information Problems reviewed: Yes Clinical Impression/Diagnosis: UTI (urinary tract infection), Intracranial bleed Fall Qualifiers: Encounter type: initial encounter Qualified Code(s): W19.XXXA - Unspecified fall, initial encounter Knee pain, left Qualifiers: Chronicity: acute Qualified Code(s): M25.562 - Pain in left knee Condition: Guarded Disposition: TRANSFER ACUTE CARE/OTHER HOSP - Follow up/Referral Referrals: Claudy Padilla MD [Primary Care Provider] - - Patient Discharge Instructions - Post Discharge Activity
--- NOTE | 2019-06-26 07:38 | PDOC ---
*Physical Exam - Vital Signs Last Vital Signs Temp Pulse Resp BP Pulse Ox 98.4 F 70 18 164/59 L 100 06/26/19 05:31 06/26/19 05:31 06/26/19 05:31 06/26/19 05:31 06/26/19 05:31 ED Treatment Course - LABORATORY CBC & Chemistry Diagram: 06/26/19 06:20 06/26/19 06:20 - ADDITIONAL ORDERS Additional order review: Laboratory Results 06/26/19 06/26/19 06/26/19 06:20 06:20 06:20 PT with INR 15.60 H INR 1.32 H PTT (Actin FS) 34.5 Sodium 137 Potassium 3.4 L Chloride 102 Carbon Dioxide 28 Anion Gap 7 L BUN 31.9 H Creatinine 1.1 Est GFR (CKD-EPI)AfAm 72.07 Est GFR (CKD-EPI)NonAf 62.19 Random Glucose 312 H Calcium 9.1 Total Bilirubin 0.6 AST 17 ALT 23 Alkaline Phosphatase 65 Troponin I Total Protein 6.9 Albumin 3.2 L 06/26/19 06:20 PT with INR INR PTT (Actin FS) Sodium Potassium Chloride Carbon Dioxide Anion Gap BUN Creatinine Est GFR (CKD-EPI)AfAm Est GFR (CKD-EPI)NonAf Random Glucose Calcium Total Bilirubin AST ALT Alkaline Phosphatase Troponin I 0.04 Total Protein Albumin 06/26/19 06:20 RBC 2.81 L MCV 91.2 MCHC 33.3 RDW 16.6 H MPV 7.5 Neutrophils % 82.8 Lymphocytes % 5.9 L Monocytes % 10.5 H D Eosinophils % 0.5 D Basophils % 0.3 - RADIOLOGY Radiology Studies Ordered: Category Date Time Status ABDOMEN & PELVIS CT WITH CONTR [CT] Stat CT Scan 06/26/19 05:54 Ordered - Medications Given in the ED: ED Medications Discontinued Medications Generic Name Dose Route Start Last Admin Trade Name Freq PRN Reason Stop Dose Admin Acetaminophen 1,000 mg 06/26/19 05:53 06/26/19 06:34 Ofirmev Injection - IVPB 06/26/19 05:54 1,000 mg ONCE ONE Administration Diphtheria/Tetanus/Acell Pertussis 0.5 ml 06/26/19 06:24 06/26/19 06:33 Boostrix - IM 06/26/19 06:25 0.5 ml .ONCE ONE Administration Medical Decision Making - Medical Decision Making 06/26/19 07:38 Received sign out from Dr Us. Pt seen and assessed at bedside. 84y M hx HTN, HLD, NIDDM, CAD (s/p cardiac stent placement x 3, CABG, Afib (on Amiodarone and Eliquis), Stage III Bladder CA (on Carboplatin and Gemcitabine at [facility], s/p bladder and prostate removal with urostomy) presenting to ED with R eye, R rib, and L knee pain and swelling s/p mechanical fall 12h ago. CBC,CMP WBC 14.5 K/mm3 (4.0-10.0) H 06/26/19 06:20 RBC 2.81 M/mm3 (4.00-5.60) L 06/26/19 06:20 Hgb 8.5 GM/dL (11.7-16.9) L 06/26/19 06:20 Hct 25.6 % (35.4-49) L 06/26/19 06:20 MCV 91.2 fl (80-96) 06/26/19 06:20 MCH 30.4 pg (25.7-33.7) 06/26/19 06:20 MCHC 33.3 g/dl (32.0-35.9) 06/26/19 06:20 RDW 16.6 % (11.9-15.9) H 06/26/19 06:20 Plt Count 217 K/MM3 (134-434) D 06/26/19 06:20 MPV 7.5 fl (7.5-11.1) 06/26/19 06:20 Absolute Neuts (auto) 12.0 K/mm3 (1.5-8.0) H 06/26/19 06:20 Neutrophils % 82.8 % (42.8-82.8) 06/26/19 06:20 Lymphocytes % 5.9 % (8-40) L 06/26/19 06:20 Monocytes % 10.5 % (3.8-10.2) H D 06/26/19 06:20 Eosinophils % 0.5 % (0-4.5) D 06/26/19 06:20 Basophils % 0.3 % (0-2.0) 06/26/19 06:20 Nucleated RBC % 0 % (0-0) 06/26/19 06:20 Sodium 137 mmol/L (136-145) 06/26/19 06:20 Potassium 3.4 mmol/L (3.5-5.1) L 06/26/19 06:20 Chloride 102 mmol/L (98-107) 06/26/19 06:20 Carbon Dioxide 28 mmol/L (21-32) 06/26/19 06:20 Anion Gap 7 MMOL/L (8-16) L 06/26/19 06:20 BUN 31.9 mg/dL (7-18) H 06/26/19 06:20 Creatinine 1.1 mg/dL (0.55-1.3) 06/26/19 06:20 Est GFR (CKD-EPI)AfAm 72.07 06/26/19 06:20 Est GFR (CKD-EPI)NonAf 62.19 06/26/19 06:20 Random Glucose 312 mg/dL (74-106) H 06/26/19 06:20 Calcium 9.1 mg/dL (8.5-10.1) 06/26/19 06:20 Total Bilirubin 0.6 mg/dL (0.2-1) 06/26/19 06:20 AST 17 U/L (15-37) 06/26/19 06:20 ALT 23 U/L (13-61) 06/26/19 06:20 Alkaline Phosphatase 65 U/L (45-117) 06/26/19 06:20 Troponin I 0.04 ng/ml (0.00-0.05) 06/26/19 06:20 Total Protein 6.9 g/dl (6.4-8.2) 06/26/19 06:20 Albumin 3.2 g/dl (3.4-5.0) L 06/26/19 06:20 -Hb 8.5 (9.2 on 04/03/19) -Mg, K for hypokalemia 3.4 -Tylenol for pain -Tdap for tetanus update -Pending CTs, XR L knee, EKG -Likely admit for inability to ambulate 06/26/19 08:53 CTH reviewed: small acute R periatrial hemorrhage (0.9x0.3x0.2cm) within R periatrial white matter laterally without edema or mass effect in comparison to CT 04/03/19. 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 -Consult and call placed for neurosurgery Dr Courtney 06/26/19 09:[address] Courtney - recommended transfer. Called [facility] transfer center to initiate transfer. Neurosurgery will call back. FACE sheet faxed. Consent obtained. Labs reviewed. UA positive for UTI. -Rocephin for UTI EKG reviewed: NSR, 66bpm, KALYN 186ms, QTc 471ms, IRBBB (new compared to 04/03/19) , no e/o acute ischemia CTs reviewed: Small sclerotic focus within T1 vertebra posteriorly probably representing incidental bone island. R periorbital/preseptal soft tissue edema without e/o ocular globe injury. No definite CT e/o acute pathology in chest, abdomen or pelvis. See read for other findings. 06/26/19 10:49 2nd trop negative. Per pt's son's request, call to PCP Dr Padilla and message left with office updating about transfer to [facility]. EMS transferred. Discharge - Discharge Information Problems reviewed: Yes Clinical Impression/Diagnosis: UTI (urinary tract infection), Intracranial bleed Fall Qualifiers: Encounter type: initial encounter Qualified Code(s): W19.XXXA - Unspecified fall, initial encounter Knee pain, left Qualifiers: Chronicity: acute Qualified Code(s): M25.562 - Pain in left knee Condition: Stable Disposition: TRANSFER ACUTE CARE/OTHER HOSP - Admission No - Follow up/Referral Referrals: Claudy Padilla MD [Primary Care Provider] - - Patient Discharge Instructions - Post Discharge Activity
[2019-06-26 08:39] LABS: EPI CELLS 9.7 /HPF (0-5/HPF); HYALINE CASTS 52 /lpf (0-8); PH,URINE 5.5 (5.0-8.0); URINE APPEARANCE CLEAR; URINE BACTERIA 6466.5 /hpf (NEGATIVE); URINE BILIRUBIN NEGATIVE (NEGATIVE); URINE COLOR YELLOW; URINE GLUCOSE (UA) 3+ (NEGATIVE); URINE KETONE NEGATIVE (NEGATIVE); URINE LEUK ESTERASE NEGATIVE (NEGATIVE); URINE NITRITE POSITIVE (NEGATIVE); URINE PROTEIN TRACE (NEGATIVE); URINE RBC 1 /hpf (0-4); URINE UROBILINOGEN 0.2 mg/dL (0.2-1.0); URINE WBC 8 /hpf (0-5)
[2019-06-26] MEDS ORDERED: CEFTRIAXONE 1 GM in DEXTROSE 5%-WATER - 100 ML IVPB ONE (08:54)
[2019-06-26] MEDS ORDERED: CEFTRIAXONE 1 GM/50 ML BAG ONE (09:56)
[2019-06-26 11:59] VITALS: TEMP 98.1
[2019-06-26 12:02] VITALS: BP 165/67; PULSE 65
--- NOTE | 2019-06-27 10:12 | EKG ---
Test Reason : Blood Pressure : / mmHG Vent. Rate : 066 BPM Atrial Rate : 066 BPM P-R Int : 186 ms QRS Dur : 106 ms QT Int : 450 ms P-R-T Axes : 074 -29 023 degrees QTc Int : 471 ms NORMAL SINUS RHYTHM INCOMPLETE RIGHT BUNDLE BRANCH BLOCK BORDERLINE ECG WHEN COMPARED WITH ECG OF 03-APR-2019 10:11, NO SIGNIFICANT CHANGE WAS FOUND Confirmed by Chelsea Mortensen ([id number]) on 06/27/2019 10:11:42 AM Referred By: Confirmed By:Chelsea Mortensen
== END 2019-06-26 10:45 | disposition short-term general hospital (02) ==
LOC: JER 05:31
PROC: 3E0234Z Introduction of Serum, Toxoid and Vaccine into Muscle, Percutaneous Approach (ICD-10-PCS; principal; 2019-06-26)
PROC: 3E03329 Introduction of Other Anti-infective into Peripheral Vein, Percutaneous Approach (ICD-10-PCS; 2019-06-26)
PROC: 3E033NZ Introduction of Analgesics, Hypnotics, Sedatives into Peripheral Vein, Percutaneous Approach (ICD-10-PCS; 2019-06-26)
PROC: 3E033GC Introduction of Other Therapeutic Substance into Peripheral Vein, Percutaneous Approach (ICD-10-PCS; 2019-06-26)
DX: I62.9 Nontraumatic intracranial hemorrhage, unspecified (principal); S05.11XA Contusion of eyeball and orbital tissues, right eye, initial encounter; S80.02XA Contusion of left knee, initial encounter; N39.0 Urinary tract infection, site not specified; W18.39XA Other fall on same level, initial encounter; Y92.480 Sidewalk as the place of occurrence of the external cause; Y93.89 Activity, other specified; Y99.8 Other external cause status; I25.119 Atherosclerotic heart disease of native coronary artery with unspecified angina pectoris; I10 Essential (primary) hypertension; Z95.1 Presence of aortocoronary bypass graft; Z95.5 Presence of coronary angioplasty implant and graft; I48.91 Unspecified atrial fibrillation; Z79.01 Long term (current) use of anticoagulants; E78.5 Hyperlipidemia, unspecified; D64.9 Anemia, unspecified; E11.9 Type 2 diabetes mellitus without complications; Z79.84 Long term (current) use of oral hypoglycemic drugs; Z85.51 Personal history of malignant neoplasm of bladder; Z90.79 Acquired absence of other genital organ(s); Z90.6 Acquired absence of other parts of urinary tract; Z93.6 Other artificial openings of urinary tract status; Z88.8 Allergy status to other drugs, medicaments and biological substances; Z88.5 Allergy status to narcotic agent
CPT/HCPCS: 36415; 70450-TC; 70480-TC; 70486-TC; 71260-TC; 72125-TC; 74177-TC; 80053; 81003; 84484; 85025; 85610; 85730; 86850; 86900; 86901; 90715; 93005; 93010; 99285-25; J0131; Q9967